=== PATIENT | female | born 1955 | race Caucasian/White ===

== ENCOUNTER 2016-11-01 14:10 | Emergency (ER) | payer MEDICARE ==
--- NOTE | 2016-11-01 14:40 | EDM.PDOC ---
ED HISTORY OF PRESENT ILLNESS - General Chief Complaint: Respiratory Problem Stated Complaint: SOB, WEAKNESS Time Seen by Provider: 11/01/16 14:39 Source: Reports: Patient History Limitations: Reports: No limitations - History of Present Illness INITIAL COMMENTS - FREE TEXT/NARRATIVE: Pt has had increased sob for the past 10 days. She is just finishing a course of predisone. Timing/Duration: Reports: Day(s):, Getting worse Severity: moderate Associated Symptoms: Reports: cough, shortness of breath - Related Data Allergies/ADRs: Allergies Allergy/AdvReac Type Severity Reaction Status Date / Time amoxicillin [From Augmentin] Allergy Difficulty Verified 11/01/16 14:16 Breathing clavulanic acid Allergy Difficulty Verified 11/01/16 14:16 [From Augmentin] Breathing ofloxacin [From Floxin] AdvReac Nausea Verified 11/01/16 14:16 Home Meds: Home Meds Albuterol Sulfate [Proair Respiclick] 2 puff IN Q4HR PRN 04/29/15 [History] Aspirin [Adult Low Dose Aspirin EC] 81 mg PO DAILY 04/29/15 [History] Atenolol 50 mg PO DAILY 04/29/15 [History] Citalopram Hydrobromide [Celexa] 40 mg PO DAILY 04/29/15 [History] Fenofibrate,Micronized [Lofibra] 134 mg PO DAILY 04/29/15 [History] Gabapentin [Neurontin] 400 mg PO QID 04/29/15 [History] Insulin Aspart [NovoLOG] 42 units SUBCUT ASDIRECTED 04/29/15 [History] Lisinopril [Zestril] 5 mg PO DAILY 04/29/15 [History] OLANZapine [ZyPREXA] 30 mg PO BEDTIME 04/29/15 [History] metFORMIN HCl [Metformin HCl] 1,000 mg PO BID 04/29/15 [History] Nitroglycerin [Nitrostat] 1 tab SL ASDIRECTED 05/08/15 [History] Fluticasone/Salmeterol [Advair Hfa 230-21 Mcg Inhaler] 2 inh INH BID 11/01/16 [ History] OLANZapine [Olanzapine] 5 mg PO DAILY 11/01/16 [History] glipiZIDE [Glucotrol XL] 5 mg PO BRK 11/01/16 [History] Past Medical History Other Dermatologic History: skin ca Social & Family History - Tobacco Use Smoking Status *Q: Former Smoker Years of Tobacco use: 30 Packs/Tins Daily: 1.5 Used Tobacco, but Quit: Yes Month Tobacco Last Used: jul - Recreational Drug Use Recreational Drug Use: No ED ROS GENERAL - Review of Systems Review Of Systems: See Below Constitutional: Reports: no symptoms HEENT: Reports: No symptoms Respiratory: Reports: Shortness of Breath, Wheezing Cardiovascular: Reports: No symptoms Endocrine: Reports: no symptoms GI/Abdominal: Reports: No symptoms : Reports: no symptoms Musculoskeletal: Reports: no symptoms ED EXAM, GENERAL - Physical Exam Exam: See Below Free Text/Narrative:: Pt arrived with sob. She was breathing quite rapidly on arrival. She did not have a fever. She is just finishing a course of predisone. Exam Limited By: No limitations General Appearance: alert, anxious, moderate distress Ears: normal TMs Nose: normal inspection Throat/Mouth: Normal inspection Head: atraumatic Neck: carotid bruit Respiratory/Chest: decreased breath sounds, wheezing Cardiovascular: regular rate, rhythm GI/Abdominal: soft, non tender (Female) Exam: Deferred Rectal (Female) Exam: Deferred Back Exam: normal inspection Extremities: normal inspection Neurological: alert, oriented, normal cognition Psychiatric: normal affect, anxious Course - Vital Signs Last Recorded V/S: Last Vital Signs Temp 36.6 C 11/01/16 14:24 Pulse 72 11/01/16 16:41 Resp 22 H 11/01/16 16:41 BP 162/78 H 11/01/16 16:41 Pulse Ox 94 L 11/01/16 16:41 - Orders/Labs/Meds Orders: Active Orders 24 hr Category Date Time Status EKG Documentation Completion [RC] ASDIRECTED Care 11/01/16 14:38 Active RT Aerosol Therapy [RC] ASDIRECTED Care 11/01/16 15:40 Active Chest 2V [CR] Stat Exams 11/01/16 14:37 Taken EKG 12 Lead [EK] Routine Ther 11/01/16 14:38 Ordered Labs: Laboratory Tests 11/01/16 11/01/16 11/01/16 Range/Units 14:37 14:37 14:38 WBC 7.7 (4.5-11.0) K/uL RBC 4.45 (3.30-5.50) M/uL Hgb 11.7 L (12.0-15.0) g/dL Hct 36.3 (36.0-48.0) % MCV 82 (80-98) fL MCH 26 L (27-31) pg MCHC 32 (32-36) % Plt Count 190 (150-400) K/uL Neut % (Auto) 79 H (36-66) % Lymph % (Auto) 14 L (24-44) % Becker % (Auto) 7 H (2-6) % Eos % (Auto) 0 L (2-4) % Baso % (Auto) 0 (0-1) % D-Dimer, Quantitative (0.0-400.0) ng/mL Sodium 140 (140-148) mmol/L Potassium 4.7 (3.6-5.2) mmol/L Chloride 103 (100-108) mmol/L Carbon Dioxide 26 (21-32) mmol/L Anion Gap 10.6 (5.0-14.0) mmol/L BUN 27 H (7-18) mg/dL Creatinine 1.2 H (0.6-1.0) mg/dL Est Cr Clr Drug Dosing 47.25 mL/min Estimated GFR (MDRD) 46 L (>60) Glucose 251 H (74-106) mg/dL Calcium 8.4 L (8.5-10.1) mg/dL Total Bilirubin 0.2 (0.2-1.0) mg/dL AST 12 L (15-37) U/L ALT 30 (12-78) U/L Alkaline Phosphatase 46 (46-116) U/L Troponin I (0.000-0.056) ng/mL C-Reactive Protein 0.34 H (0.0-0.3) mg/dL Ulr-[id number]-Bngarxyrzsf Pept 232 H (5-125) pg/mL Total Protein 6.7 (6.4-8.2) g/dL Albumin 3.3 L (3.4-5.0) g/dL Globulin 3.4 (2.3-3.5) g/dL Albumin/Globulin Ratio 1.0 L (1.2-2.2) Urine Color Urine Appearance Urine pH (4.5-8.0) Ur Specific Hooper (1.008-1.030) Urine Protein (NEGATIVE) mg/dL Urine Glucose (UA) (NEGATIVE) mg/dL Urine Ketones (NEGATIVE) mg/dL Urine Occult Blood (NEGATIVE) Urine Nitrite (NEGATIVE) Urine Bilirubin (NEGATIVE) Urine Urobilinogen (NORMAL) mg/dL Ur Leukocyte Esterase (NEGATIVE) Urine RBC (0-5) Urine WBC (0-5) Ur Epithelial Cells Amorphous Sediment Urine Bacteria Urine Mucus 11/01/16 11/01/16 11/01/16 Range/Units 14:40 14:41 15:16 WBC (4.5-11.0) K/uL RBC (3.30-5.50) M/uL Hgb (12.0-15.0) g/dL Hct (36.0-48.0) % MCV (80-98) fL MCH (27-31) pg MCHC (32-36) % Plt Count (150-400) K/uL Neut % (Auto) (36-66) % Lymph % (Auto) (24-44) % Becker % (Auto) (2-6) % Eos % (Auto) (2-4) % Baso % (Auto) (0-1) % D-Dimer, Quantitative 113 (0.0-400.0) ng/mL Sodium (140-148) mmol/L Potassium (3.6-5.2) mmol/L Chloride (100-108) mmol/L Carbon Dioxide (21-32) mmol/L Anion Gap (5.0-14.0) mmol/L BUN (7-18) mg/dL Creatinine (0.6-1.0) mg/dL Est Cr Clr Drug Dosing mL/min Estimated GFR (MDRD) (>60) Glucose (74-106) mg/dL Calcium (8.5-10.1) mg/dL Total Bilirubin (0.2-1.0) mg/dL AST (15-37) U/L ALT (12-78) U/L Alkaline Phosphatase (46-116) U/L Troponin I < 0.017 (0.000-0.056) ng/mL C-Reactive Protein (0.0-0.3) mg/dL Oit-G-Unbyfbfbcms Pept (5-125) pg/mL Total Protein (6.4-8.2) g/dL Albumin (3.4-5.0) g/dL Globulin (2.3-3.5) g/dL Albumin/Globulin Ratio (1.2-2.2) Urine Color Yellow Urine Appearance Clear Urine pH 6.0 (4.5-8.0) Ur Specific Hooper 1.010 (1.008-1.030) Urine Protein Negative (NEGATIVE) mg/dL Urine Glucose (UA) 100 H (NEGATIVE) mg/dL Urine Ketones Negative (NEGATIVE) mg/dL Urine Occult Blood Negative (NEGATIVE) Urine Nitrite Negative (NEGATIVE) Urine Bilirubin Negative (NEGATIVE) Urine Urobilinogen 1 (NORMAL) mg/dL Ur Leukocyte Esterase Small (NEGATIVE) Urine RBC 0-5 (0-5) Urine WBC 0-5 (0-5) Ur Epithelial Cells Few Amorphous Sediment Few Urine Bacteria Not seen Urine Mucus Few Meds: Medications Discontinued Medications Generic Name Dose Route Start Last Admin Trade Name Freq PRN Reason Stop Dose Admin Albuterol 2.5 mg 11/01/16 15:39 11/01/16 16:02 Proventil Neb Soln NEB 11/01/16 15:40 2.5 mg ONETIME ONE Administration - Re-Assessments/Exams Free Text/Narrative Re-Assessment/Exam: 11/01/16 17:10 chest no infiltrates present, copd, bnp is not elevated, d dimer is not elevated. her wbc is normal, trop is good. Her ekg does not show ny acute changes. She was ambulated in the [place] and did not desat significantly Departure - Departure Time of Disposition: 17:12 Disposition: Home, Self-Care 01 Condition: fair Clinical Impression: COPD (chronic obstructive pulmonary disease), Atypical chest pain Instructions: Chronic Obstructive Pulmonary Disease, [id number], Nonspecific Chest Pain Referrals: Adi Lynch MD [Primary Care Provider] - Forms: ED Department Discharge Care Plan Goals: , albuterol neb q6h, finish predisone, cont other med. appt with regular physian mid week. - My Orders Last 24 Hours: My Active Orders 11/01/16 14:37 Chest 2V [CR] Stat 11/01/16 14:38 EKG Documentation Completion [RC] ASDIRECTED EKG 12 Lead [EK] Routine 11/01/16 15:40 RT Aerosol Therapy [RC] ASDIRECTED - Assessment/Plan Last 24 Hours: My Active Orders 11/01/16 14:37 Chest 2V [CR] Stat 11/01/16 14:38 EKG Documentation Completion [RC] ASDIRECTED EKG 12 Lead [EK] Routine 11/01/16 15:40 RT Aerosol Therapy [RC] ASDIRECTED
[2016-11-01] MEDS ORDERED: Albuterol 0.083% 2.5 MG/3 ML Neb Soln NEB ONE (15:39)
[2016-11-01 16:45] VITALS: BP 162/78
--- NOTE | 2016-11-02 09:14 | CR ---
Chest 2V INDICATION: sob FINDINGS: Comparison 05/08/2015. Heart size borderline enlarged. Hypertrophic changes thoracic spine . Chest otherwise negative.
== END 2016-11-01 17:37 | disposition home or self-care (01) ==
LOC: JP.ED 14:10
DX: J44.9 Chronic obstructive pulmonary disease, unspecified (principal); R07.89 Other chest pain; Z79.4 Long term (current) use of insulin; Z79.899 Other long term (current) drug therapy; Z79.82 Long term (current) use of aspirin; Z87.891 Personal history of nicotine dependence; Z88.1 Allergy status to other antibiotic agents; Z88.8 Allergy status to other drugs, medicaments and biological substances; Z85.828 Personal history of other malignant neoplasm of skin
CPT/HCPCS: 36415; 71020; 71020-26; 80053; 81001; 83880; 84484; 85025; 85379; 86140; 93005; 93010; 99283; 99285-25

== ENCOUNTER 2017-07-07 10:25 | Emergency (ER) | payer MEDICARE ==
--- NOTE | 2017-07-07 10:50 | EDM.PDOC ---
ED HPI GENERAL MEDICAL PROBLEM - General Chief Complaint: Respiratory Problem Stated Complaint: MEDICAL Time Seen by Provider: 07/07/17 10:39 Source of Information: Reports: Patient, Family, RN Notes Reviewed History Limitations: Reports: No Limitations - History of Present Illness INITIAL COMMENTS - FREE TEXT/NARRATIVE: 62-year-old female presents to emergency department today complaint of shortness of breath, she has a known history of chronic obstructive pulmonary disease she states her breathing has become worse over the last week and a half or so she is producing sputum is white with red tinge denies any fevers, chest pain secondary to coughing - Related Data Allergies Allergy/AdvReac Type Severity Reaction Status Date / Time amoxicillin [From Augmentin] Allergy Difficulty Verified 07/07/17 10:32 Breathing clavulanic acid Allergy Difficulty Verified 07/07/17 10:32 [From Augmentin] Breathing ofloxacin [From Floxin] AdvReac Nausea Verified 07/07/17 10:32 Home Meds: Home Meds Albuterol Sulfate [Proair Respiclick] 2 puff IN Q4HR PRN 04/29/15 [History] Aspirin [Adult Low Dose Aspirin EC] 81 mg PO DAILY 04/29/15 [History] Atenolol 50 mg PO DAILY 04/29/15 [History] Citalopram Hydrobromide [Celexa] 40 mg PO DAILY 04/29/15 [History] Fenofibrate,Micronized [Lofibra] 134 mg PO DAILY 04/29/15 [History] Gabapentin [Neurontin] 400 mg PO QID 04/29/15 [History] Insulin Aspart [NovoLOG] 42 units SUBCUT ASDIRECTED 04/29/15 [History] Lisinopril [Zestril] 5 mg PO DAILY 04/29/15 [History] OLANZapine [ZyPREXA] 30 mg PO BEDTIME 04/29/15 [History] metFORMIN HCl [Metformin HCl] 1,000 mg PO BID 04/29/15 [History] Nitroglycerin [Nitrostat] 1 tab SL ASDIRECTED 05/08/15 [History] Fluticasone/Salmeterol [Advair Hfa 230-21 Mcg Inhaler] 2 inh INH BID 11/01/16 [ History] OLANZapine [Olanzapine] 5 mg PO DAILY 11/01/16 [History] glipiZIDE [Glucotrol XL] 5 mg PO BRK 11/01/16 [History] Past Medical History Cardiovascular History: Reports: High Cholesterol Respiratory History: Reports: COPD Musculoskeletal History: Reports: Fracture Psychiatric History: Reports: Anxiety, Bipolar, Depression, Panic Attack, Psych Hospitalization(s) Other Psychiatric History: schizoeffective disorder. Endocrine/Metabolic History: Reports: Diabetes, Type II, Obesity/BMI 30+ Oncologic (Cancer) History: Reports: Other (See Below) Other Oncologic History: skin cancer Other Dermatologic History: skin ca - Past Surgical History Female Surgical History: Reports: Tubal Ligation Other Oncologic Surgeries/Procedures: HX OF SKIN CA Social & Family History - Tobacco Use Smoking Status *Q: Unknown Ever Smoked Years of Tobacco use: 30 Packs/Tins Daily: 1.5 Used Tobacco, but Quit: Yes Month Tobacco Last Used: jul - Recreational Drug Use Recreational Drug Use: No ED ROS GENERAL - Review of Systems Review Of Systems: See Below Constitutional: Denies: Fever, Chills HEENT: Reports: No Symptoms Respiratory: Reports: Shortness of Breath, Cough, Sputum Cardiovascular: Reports: No Symptoms Endocrine: Reports: No Symptoms GI/Abdominal: Reports: No Symptoms : Reports: No Symptoms Musculoskeletal: Reports: No Symptoms Skin: Reports: No Symptoms ED EXAM, GENERAL - Physical Exam Exam: See Below Free Text/Narrative:: General: Female, not in any distress, alert and oriented x3 HEENT: head is atraumatic normocephalic, eyes pupils equal round reactive to light, sclera clear no conjunctivitis appreciated. Ears tympanic membranes clear and lopez landmarks and light reflex are present bilaterally canals are clear. Nose no septal deviation, nares are clear, no blood present. Mouth mucosa is moist and pink no erythema or exudate noted in soft palate, tongue is midline uvula is midline, dentition is intact. Neck: Supple no thyromegaly no tracheal deviation. Nodes: Cervical nodes subclavicular nodes nontender no palpable lymphadenopathy noted. Lungs: Breath sounds are distant I don't appreciate any adventitious noises CV: Regular rate and rhythm S1 and S2 appreciated no murmurs rubs or gallops noted. Abdomen: Soft, nontender, no palpable masses or organomegaly appreciated, no distention no guarding bowel sounds are present, . Neuro: Cranial nerves II through XII grossly intact Skin: Warm and dry, intact Extremities: No lower extremity edema appreciated, Course - Vital Signs Last Recorded V/S: Last Vital Signs Temp 97.0 F 07/07/17 10:28 Pulse 78 07/07/17 10:28 Resp 16 07/07/17 10:28 BP 154/72 H 07/07/17 10:28 Pulse Ox 98 07/07/17 10:28 - Orders/Labs/Meds Orders: Active Orders 24 hr Category Date Time Status EKG Documentation Completion [RC] ASDIRECTED Care 07/07/17 10:47 Active EKG 12 Lead [EK] Stat Ther 07/07/17 10:47 Ordered Labs: Laboratory Tests 07/07/17 07/07/17 07/07/17 Range/Units 10:35 10:35 10:35 WBC 4.4 L (4.5-11.0) K/uL RBC 4.16 (3.30-5.50) M/uL Hgb 10.9 L (12.0-15.0) g/dL Hct 34.4 L (36.0-48.0) % MCV 83 (80-98) fL MCH 26 L (27-31) pg MCHC 32 (32-36) % Plt Count 177 (150-400) K/uL Neut % (Auto) 73 H (36-66) % Lymph % (Auto) 20 L (24-44) % Kinney % (Auto) 8 H (2-6) % Eos % (Auto) 0 L (2-4) % Baso % (Auto) 0 (0-1) % Sodium 137 L (140-148) mmol/L Potassium 4.5 (3.6-5.2) mmol/L Chloride 101 (100-108) mmol/L Carbon Dioxide 29 (21-32) mmol/L Anion Gap 11.5 (5.0-14.0) mmol/L BUN 28 H (7-18) mg/dL Creatinine 1.3 H (0.6-1.0) mg/dL Est Cr Clr Drug Dosing TNP Estimated GFR (MDRD) 42 L (>60) Glucose 401 H* (74-106) mg/dL Lactic Acid 2.7 H (0.4-2.0) mmol/L Calcium 9.3 (8.5-10.1) mg/dL Total Bilirubin 0.3 (0.2-1.0) mg/dL AST 13 L (15-37) U/L ALT 26 (12-78) U/L Alkaline Phosphatase 51 (46-116) U/L Troponin I < 0.017 (0.000-0.056) ng/mL NT-Pro-B Natriuret Pep (5-125) pg/mL Total Protein 6.6 (6.4-8.2) g/dL Albumin 3.1 L (3.4-5.0) g/dL Globulin 3.5 (2.3-3.5) g/dL Albumin/Globulin Ratio 0.9 L (1.2-2.2) 07/07/17 Range/Units 10:35 WBC (4.5-11.0) K/uL RBC (3.30-5.50) M/uL Hgb (12.0-15.0) g/dL Hct (36.0-48.0) % MCV (80-98) fL MCH (27-31) pg MCHC (32-36) % Plt Count (150-400) K/uL Neut % (Auto) (36-66) % Lymph % (Auto) (24-44) % Kinney % (Auto) (2-6) % Eos % (Auto) (2-4) % Baso % (Auto) (0-1) % Sodium (140-148) mmol/L Potassium (3.6-5.2) mmol/L Chloride (100-108) mmol/L Carbon Dioxide (21-32) mmol/L Anion Gap (5.0-14.0) mmol/L BUN (7-18) mg/dL Creatinine (0.6-1.0) mg/dL Est Cr Clr Drug Dosing Estimated GFR (MDRD) (>60) Glucose (74-106) mg/dL Lactic Acid (0.4-2.0) mmol/L Calcium (8.5-10.1) mg/dL Total Bilirubin (0.2-1.0) mg/dL AST (15-37) U/L ALT (12-78) U/L Alkaline Phosphatase (46-116) U/L Troponin I (0.000-0.056) ng/mL NT-Pro-B Natriuret Pep 80 (5-125) pg/mL Total Protein (6.4-8.2) g/dL Albumin (3.4-5.0) g/dL Globulin (2.3-3.5) g/dL Albumin/Globulin Ratio (1.2-2.2) Meds: Medications Discontinued Medications Generic Name Dose Route Start Last Admin Trade Name Dona PRN Reason Stop Dose Admin Insulin Human Regular 10 unit 07/07/17 12:34 Novolin R SUBCUT 07/07/17 12:35 ONETIME ONE Protocol Departure - Departure Time of Disposition: 12:48 Disposition: Home, Self-Care 01 Condition: Fair Clinical Impression: COPD exacerbation - Discharge Information Referrals: Adi Lynch MD [Primary Care Provider] - Forms: ED Department Discharge Additional Instructions: Take full course of antibiotics, Please followup with your primary care provider in 5-7 days if not better, please call return to the emergency department with worsening of symptoms. - My Orders Last 24 Hours: My Active Orders 07/07/17 10:47 EKG Documentation Completion [RC] ASDIRECTED EKG 12 Lead [EK] Stat - Assessment/Plan Last 24 Hours: My Active Orders 07/07/17 10:47 EKG Documentation Completion [RC] ASDIRECTED EKG 12 Lead [EK] Stat Plan: Assessment Acuity = acute Site and laterality = exacerbation COPD, came the patient with known history history of chronic obstructive pulmonary disease and diabetes mellitus type 2 Etiology = unclear etiology Manifestations = dyspnea beyond baseline Location of injury = Home Lab values = hemoglobin low at 10.4 consistent normochromic anemia creatinine elevated at 1.3 consistent with chronic renal failure stage G IIIB lactic acid elevated at 2.7 consistent lactic acidosis troponin negative, glucose elevated at 41 consistent with hyperglycemia chest x-ray shows no acute process EKG EKG demonstrates normal sinus rhythm there is no atrial enlargement there is no ventricular enlargement there is no axis deviation no T wave inversions I don't appreciate any ST depressions or elevations no Q waves noted good R wave progression Plan I did review lab work chest x-ray and EKG results with her I offered to work on her blood sugar to get that down and recheck however she declined she would prefer to start her home medications of insulin which she has not done today discussed the use of antibiotics and steroids for her acute exacerbation of her breathing she declined steroids at this time prescription written for doxycycline 100 mg by mouth twice a day 7 days she is to follow-up with her primary care in 5-7 days for reevaluation Patient was in agreement with the plan all questions were answered, they were instructed to return to the emergency department or call for worsening symptoms. This note was dictated using [employer] voice recognition software please call with any questions.
--- NOTE | 2017-07-07 12:13 | CR ---
Chest 2V INDICATION: sob COMPARISON: 11/01/2016 FINDINGS: Two views. Mild cardiomegaly unchanged. No infiltrates, pleural effusions, or signs of p ulmonary edema. IMPRESSION: Nothing acute.
[2017-07-07] MEDS ORDERED: Insulin Regular, Human 100 Units/ML 10 ML Vial SUBCUT ONE (12:34)
[2017-07-07 13:10] VITALS: BP 137/60
== END 2017-07-07 13:11 | disposition home or self-care (01) ==
LOC: JP.ED 10:25
DX: J44.1 Chronic obstructive pulmonary disease with (acute) exacerbation (principal); E78.00 Pure hypercholesterolemia, unspecified; F41.0 Panic disorder [episodic paroxysmal anxiety]; F31.9 Bipolar disorder, unspecified; E11.9 Type 2 diabetes mellitus without complications; Z87.891 Personal history of nicotine dependence; Z79.4 Long term (current) use of insulin; Z79.899 Other long term (current) drug therapy; Z79.82 Long term (current) use of aspirin; Z88.1 Allergy status to other antibiotic agents
CPT/HCPCS: 36415; 71020; 71020-26; 80053; 83605; 83880; 84484; 85025; 93005; 93010; 99284; 99285-25; A9270-GY

== ENCOUNTER 2017-08-25 10:10 | Emergency (ER) | payer MEDICAID, MEDICARE ==
[2017-08-25 10:24] VITALS: BP 150/65
--- NOTE | 2017-08-25 11:34 | CR ---
Knee 3V Lt HISTORY: Trauma COMPARISON: None FINDINGS: Mild degenerative change in the medial and lateral compartment with marginal osteophyte for mation. There is moderate degenerative change in the patellar femoral joint with moderate marginal os teophytes greatest superiorly and laterally. No significant effusion or fracture. No bony destructive process seen.
--- NOTE | 2017-08-25 12:12 | EDM.PDOC ---
ED HPI GENERAL MEDICAL PROBLEM - General Chief Complaint: Lower Extremity Injury/Pain Stated Complaint: FALL VIA TRI Time Seen by Provider: 08/25/17 11:02 Source of Information: Reports: Patient History Limitations: Reports: No Limitations - History of Present Illness INITIAL COMMENTS - FREE TEXT/NARRATIVE: This patient comes in after falling at home. She isn't sure if she tripped over something such as her walker or if she just lost her balance but it happened just as she was getting out of bed. She fell to her knees she has an abrasion of the right knee but says it really hurts her left knee. She has a lot of degenerative arthritis in the knees and is scheduled to get a left knee replacement sometime in the fairly near future. Left Knee Pain Score (Numeric/FACES): 10 - Related Data Allergies Allergy/AdvReac Type Severity Reaction Status Date / Time amoxicillin [From Augmentin] Allergy Difficulty Verified 08/25/17 10:37 Breathing clavulanic acid Allergy Difficulty Verified 08/25/17 10:37 [From Augmentin] Breathing ofloxacin [From Floxin] AdvReac Nausea Verified 08/25/17 10:37 Home Meds: Home Meds Albuterol Sulfate [Proair Respiclick] 2 puff IN Q4HR PRN 04/29/15 [History] Aspirin [Adult Low Dose Aspirin EC] 81 mg PO DAILY 04/29/15 [History] Atenolol 50 mg PO DAILY 04/29/15 [History] Citalopram Hydrobromide [Celexa] 40 mg PO DAILY 04/29/15 [History] Fenofibrate,Micronized [Lofibra] 134 mg PO DAILY 04/29/15 [History] Gabapentin [Neurontin] 400 mg PO QID 04/29/15 [History] Insulin Aspart [NovoLOG] 37 units SUBCUT TID 04/29/15 [History] Lisinopril [Zestril] 5 mg PO DAILY 04/29/15 [History] OLANZapine [ZyPREXA] 30 mg PO BEDTIME 04/29/15 [History] metFORMIN HCl [Metformin HCl] 1,000 mg PO BID 04/29/15 [History] Nitroglycerin [Nitrostat] 1 tab SL ASDIRECTED 05/08/15 [History] Fluticasone/Salmeterol [Advair Hfa 230-21 Mcg Inhaler] 2 inh INH BID 11/01/16 [ History] OLANZapine [Olanzapine] 5 mg PO DAILY 11/01/16 [History] glipiZIDE [Glucotrol XL] 5 mg PO BRK 11/01/16 [History] Insulin NPH Human Isophane [Novolin N] 1 SQ BEDTIME 08/25/17 [History] traMADol HCl [Tramadol HCl] 50 mg PO Q6HR 08/25/17 [History] Past Medical History Cardiovascular History: Reports: High Cholesterol, Hypertension Respiratory History: Reports: Asthma, 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 Endocrine/Metabolic History: Reports: Diabetes, Type II, Obesity/BMI 30+ Oncologic (Cancer) History: Reports: Other (See Below) Other Oncologic History: skin cancer Other Dermatologic History: skin ca - Infectious Disease History Infectious Disease History: Reports: Chicken Pox, Influenza, Measles, Mumps - Past Surgical History Female Surgical History: Reports: Tubal Ligation Other Oncologic Surgeries/Procedures: HX OF SKIN CA Social & Family History - Tobacco Use Smoking Status *Q: Former Smoker Years of Tobacco use: 30 Packs/Tins Daily: 1.5 Used Tobacco, but Quit: Yes Month Tobacco Last Used: cant remember - Caffeine Use Caffeine Use: Reports: Soda - Recreational Drug Use Recreational Drug Use: No Review of Systems - Review of Systems Review Of Systems: ROS reveals no pertinent complaints other than HPI. ED EXAM, GENERAL - Physical Exam Exam: See Below Exam Limited By: No Limitations General Appearance: Alert, No Apparent Distress, Obese Eye Exam: Bilateral Eye: Normal Inspection Head: Atraumatic Neck: Full Range of Motion Respiratory/Chest: No Respiratory Distress, Lungs Clear Cardiovascular: Regular Rate, Rhythm GI/Abdominal: Non-Tender Extremities: Other (Minor abrasion over the right patella. No swelling of the right knee. Good range of motion of the right. Left knee shows no abrasions with this is just a little red susu over the patella. There is no effusion. She has decreased active range of motion due to pain. No instability was noted.) Skin Exam: Warm, Dry Course - Vital Signs Last Recorded V/S: Last Vital Signs Temp 37.6 C 08/25/17 10:30 Pulse 128 H 08/25/17 10:30 Resp 15 08/25/17 10:30 BP 150/65 H 08/25/17 10:30 Pulse Ox 83 L 08/25/17 10:30 - Radiology Interpretation Free Text/Narrative:: Plain films left knee shows water degenerative changes but nothing acute Departure - Departure Time of Disposition: 12:11 Disposition: Home, Self-Care 01 Condition: Fair Clinical Impression: Contusion of left knee, Abrasion of right knee - Discharge Information Referrals: Adi Lynch MD [Primary Care Provider] - Additional Instructions: Apply alternating ice and heat to the knees. Usually her own pain medications as needed. Try to stay as active as you can. Follow-up with your Dr. if no better in a few days
== END 2017-08-25 12:31 | disposition home or self-care (01) ==
LOC: JP.ED 10:10
DX: S80.02XA Contusion of left knee, initial encounter (principal); S80.211A Abrasion, right knee, initial encounter; E78.00 Pure hypercholesterolemia, unspecified; I10 Essential (primary) hypertension; E11.9 Type 2 diabetes mellitus without complications; Z88.1 Allergy status to other antibiotic agents; Z88.8 Allergy status to other drugs, medicaments and biological substances; Z79.82 Long term (current) use of aspirin; Z79.899 Other long term (current) drug therapy; Z79.4 Long term (current) use of insulin; Z87.891 Personal history of nicotine dependence; W19.XXXA Unspecified fall, initial encounter
CPT/HCPCS: 73562-26-LT; 73562-LT; 99284

== ENCOUNTER 2017-08-26 10:26 | Inpatient (IN) | payer MEDICARE ==
[2017-08-26] MEDS ORDERED: Sodium Chloride 0.9% 1,000 ML IV ONE ×2 (11:02→12:36)
[2017-08-26] MEDS ORDERED: Sodium Chloride 0.9% 10 ML Syringe FLUSH PRN (11:03)
--- NOTE | 2017-08-26 12:00 | CT ---
Head wo Cont INDICATION: Fall. Dose: Total DLP 942. FINDINGS: No acute intracranial hemorrhage, mass, or edema. Visualized portions of the paranasal sinu ses and mastoid air cells are clear. Soft tissues are negative. IMPRESSION: Negative head CT.
[2017-08-26] MEDS ORDERED: OLANZapine 5 MG Tab PO ONE (13:12)
--- NOTE | 2017-08-26 13:45 | CR ---
Chest 1V Frontal HISTORY: Falling, weakness. COMPARISON: 07/07/2017. FINDINGS: Mild cardiomegaly. This is magnified from portable technique and somewhat lordotic projecti on. No acute congestive change no dense infiltrates or effusions.
--- NOTE | 2017-08-26 16:10 | PCM.HP ---
H&P History of Present Illness - General Date of Service: 08/26/17 Admit Problem/Dx: Admission Diagnosis/Problem Admission Diagnosis/Problem Syncope Source of Information: Patient, Provider History Limitations: Reports: No Limitations - History of Present Illness Initial Comments - Free Text/Narative: Amrita presents to the emergency room again today with recurrent falls, generalized weakness and several episodes of falling asleep. She reports that she has not felt well for the past several days. No real specific complaints just feels tired and is falling asleep. She does not have symptoms that preceded her fall she just loses strength and slowly slumped to the ground. She does not report dizziness or lightheadedness. She has not had any palpitations, chest pain or chest tightness. She has had minor injuries such as abrasions to her knees with the falls. She was so weak yesterday she couldn't get up out of the chair. She doesn't think that she's had any fevers area appetite has been normal. She has had some low blood sugars around lunchtime but otherwise her sugars have been up and down like usual. No complaints of abdominal pain, nausea or diarrhea. No change in bladder habits. She does note that she was recently started on diclofenac and tramadol for her left knee arthritis. She is wondering if the tramadol is making her sleepy. She has not been drinking very well the past few days. Workup in the emergency room revealed sinus tachycardia, evidence for dehydration on examination and her laboratory studies reveal a troponin of 0.13 a potassium of 6 and a creatinine now up to 1.5. Given her recurrent episodes of syncope, elevated troponin and worsening renal function she will be admitted for additional management. Left Knee Pain Score (Numeric/FACES): 4 - Related Data Allergies/Adverse Reactions: Allergies Allergy/AdvReac Type Severity Reaction Status Date / Time amoxicillin [From Augmentin] Allergy Difficulty Verified 08/26/17 10:41 Breathing clavulanic acid Allergy Difficulty Verified 08/26/17 10:41 [From Augmentin] Breathing ofloxacin [From Floxin] AdvReac Nausea Verified 08/26/17 10:41 Home Medications: Home Meds Albuterol Sulfate [Proair Respiclick] 2 puff IN Q4HR PRN 04/29/15 [History] Aspirin [Adult Low Dose Aspirin EC] 81 mg PO DAILY 04/29/15 [History] Atenolol 50 mg PO DAILY 04/29/15 [History] Citalopram Hydrobromide [Celexa] 40 mg PO DAILY 04/29/15 [History] Fenofibrate,Micronized [Lofibra] 134 mg PO DAILY 04/29/15 [History] Gabapentin [Neurontin] 400 mg PO QID 04/29/15 [History] Insulin Aspart [NovoLOG] 37 units SUBCUT TID 04/29/15 [History] Lisinopril [Zestril] 5 mg PO DAILY 04/29/15 [History] OLANZapine [ZyPREXA] 30 mg PO BEDTIME 04/29/15 [History] metFORMIN HCl [Metformin HCl] 1,000 mg PO BID 04/29/15 [History] Nitroglycerin [Nitrostat] 1 tab SL ASDIRECTED 05/08/15 [History] Fluticasone/Salmeterol [Advair Hfa 230-21 Mcg Inhaler] 2 inh INH BID 11/01/16 [ History] OLANZapine [Olanzapine] 5 mg PO DAILY 11/01/16 [History] glipiZIDE [Glucotrol XL] 5 mg PO BRK 11/01/16 [History] Insulin NPH Human Isophane [Novolin N] 30 unit SQ BEDTIME 08/25/17 [History] Benztropine Mesylate 1 tab PO BEDTIME 08/26/17 [History] Diclofenac Potassium [Cataflam] 1 tab PO ASDIRECTED 08/26/17 [History] clonazePAM [Klonopin] 1 mg PO DAILY 08/26/17 [History] clonazePAM [Klonopin] 2 mg PO BEDTIME 08/26/17 [History] Past Medical History Cardiovascular History: Reports: High Cholesterol, Hypertension Respiratory History: Reports: Asthma, COPD [employer]OR [employer]IMENT[employer]ICINE History: Reports: Musculoskeletal History: Reports: Fracture Psychiatric History: Reports: Anxiety, Bipolar, Depression, Panic Attack, Psych Hospitalization(s) Other Psychiatric History: schizoeffective disorder. Endocrine/Metabolic History: Reports: Diabetes, Type II, Obesity/BMI 30+ Oncologic (Cancer) History: Reports: Other (See Below) Other Oncologic History: skin cancer Other Dermatologic History: skin ca - Infectious Disease History Infectious Disease History: Reports: Chicken Pox, Influenza, Measles, Mumps - Past Surgical History Female Surgical History: Reports: Tubal Ligation Other Oncologic Surgeries/Procedures: HX OF SKIN CA Social & Family History - Family History Cardiac: Reports: CAD (father in his 60's) - Tobacco Use Smoking Status *Q: Never Smoker Years of Tobacco use: 30 Packs/Tins Daily: 1.5 Used Tobacco, but Quit: Yes Month Tobacco Last Used: cant remember - Caffeine Use Caffeine Use: Reports: Soda - Alcohol Use Alcohol Use History: No Alcohol Use in Last Twelve Months: No 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 Pertinent positives and negatives are noted in the history of present illness. All other systems were reviewed and were negative except as noted. Exam - Exam Exam: See Below - Vital Signs Vital Signs: Last Vital Signs Temp 37.3 C 08/26/17 10:38 Pulse 118 H 08/26/17 14:10 Resp 14 08/26/17 14:10 BP 135/57 L 08/26/17 14:10 Pulse Ox 95 08/26/17 14:10 Weight: 136.078 kg - Exam Quality Assessment: Supplemental Oxygen General: Alert, Oriented, Cooperative. No: Mild Distress HEENT: Conjunctiva Clear. No: Mucosa Moist & [place] (dry), Scleral Icterus Neck: Supple, Trachea Midline. No: Lymphadenopathy, Thyromegaly Lungs: Clear to Auscultation, Normal Respiratory Effort Cardiovascular: Regular Rhythm, Tachycardia. No: Systolic Murmur GI/Abdominal Exam: Normal Bowel Sounds, Soft, Non-Tender, No Distention, Other ( obese) Extremities: No Pedal Edema. No: Increased Warmth Peripheral Pulses: 2+: Dorsalis Pedis (L), Dorsalis Pedis (R) Skin: Warm, Dry. No: Rash Neuro Extensive - Mental Status: Alert, Oriented x3, Nl Response to Commands Neuro Extensive - Motor, Sensory, Reflexes: CN II-XII Intact. No: Dysarthria, Abnormal Motor, Tremor Psychiatric: Alert, Normal Affect - Patient Data Lab Results Last 24 hrs: Laboratory Results - last 24 hr 08/26/17 08/26/17 08/26/17 Range/Units 11:36 11:36 12:34 WBC 7.3 (4.5-11.0) K/uL RBC 3.61 (3.30-5.50) M/uL Hgb 9.6 L (12.0-15.0) g/dL Hct 30.3 L (36.0-48.0) % MCV 84 (80-98) fL MCH 27 (27-31) pg MCHC 32 (32-36) % Plt Count 185 (150-400) K/uL Neut % (Auto) 80 H (36-66) % Lymph % (Auto) 10 L (24-44) % Bibb % (Auto) 10 H (2-6) % Eos % (Auto) 0 L (2-4) % Baso % (Auto) 0 (0-1) % Sodium 131 L (140-148) mmol/L Potassium 6.0 H (3.6-5.2) mmol/L Chloride 99 L (100-108) mmol/L Carbon Dioxide 29 (21-32) mmol/L Anion Gap 9.0 (5.0-14.0) mmol/L BUN 36 H (7-18) mg/dL Creatinine 1.5 H (0.6-1.0) mg/dL Est Cr Clr Drug Dosing 37.34 mL/min Estimated GFR (MDRD) 35 L (>60) Glucose 232 H (74-106) mg/dL Calcium 8.8 (8.5-10.1) mg/dL Total Bilirubin 0.4 (0.2-1.0) mg/dL AST 24 D (15-37) U/L ALT 28 (12-78) U/L Alkaline Phosphatase 40 L (46-116) U/L Troponin I 0.136 H* (0.000-0.056) ng/mL Total Protein 5.6 L (6.4-8.2) g/dL Albumin 2.9 L (3.4-5.0) g/dL Globulin 2.7 (2.3-3.5) g/dL Albumin/Globulin Ratio 1.1 L (1.2-2.2) Urine Color Urine Appearance Urine pH (4.5-8.0) Ur Specific [place] (1.008-1.030) Urine Protein (NEGATIVE) mg/dL Urine Glucose (UA) (NEGATIVE) mg/dL Urine Ketones (NEGATIVE) mg/dL Urine Occult Blood (NEGATIVE) Urine Nitrite (NEGATIVE) Urine Bilirubin (NEGATIVE) Urine Urobilinogen (NORMAL) mg/dL Ur Leukocyte Esterase (NEGATIVE) Urine RBC (0-5) Urine WBC (0-5) Ur Epithelial Cells Amorphous Sediment Urine Bacteria Urine Mucus 08/26/17 08/26/17 Range/Units 12:59 14:30 WBC (4.5-11.0) K/uL RBC (3.30-5.50) M/uL Hgb (12.0-15.0) g/dL Hct (36.0-48.0) % MCV (80-98) fL MCH (27-31) pg MCHC (32-36) % Plt Count (150-400) K/uL Neut % (Auto) (36-66) % Lymph % (Auto) (24-44) % [place] % (Auto) (2-6) % Eos % (Auto) (2-4) % Baso % (Auto) (0-1) % Sodium (140-148) mmol/L Potassium (3.6-5.2) mmol/L Chloride (100-108) mmol/L Carbon Dioxide (21-32) mmol/L Anion Gap (5.0-14.0) mmol/L BUN (7-18) mg/dL Creatinine (0.6-1.0) mg/dL Est Cr Clr Drug Dosing mL/min Estimated GFR (MDRD) (>60) Glucose (74-106) mg/dL Calcium (8.5-10.1) mg/dL Total Bilirubin (0.2-1.0) mg/dL AST (15-37) U/L ALT (12-78) U/L Alkaline Phosphatase (46-116) U/L Troponin I 0.127 H* (0.000-0.056) ng/mL Total Protein (6.4-8.2) g/dL Albumin (3.4-5.0) g/dL Globulin (2.3-3.5) g/dL Albumin/Globulin Ratio (1.2-2.2) Urine Color Yellow Urine Appearance Cloudy Urine pH 5.0 (4.5-8.0) Ur Specific [place] 1.020 (1.008-1.030) Urine Protein Negative (NEGATIVE) mg/dL Urine Glucose (UA) Normal (NEGATIVE) mg/dL Urine Ketones Negative (NEGATIVE) mg/dL Urine Occult Blood Negative (NEGATIVE) Urine Nitrite Negative (NEGATIVE) Urine Bilirubin Negative (NEGATIVE) Urine Urobilinogen Normal (NORMAL) mg/dL Ur Leukocyte Esterase Negative (NEGATIVE) Urine RBC 0-5 (0-5) Urine WBC 0-5 (0-5) Ur Epithelial Cells Moderate Amorphous Sediment Not seen Urine Bacteria Few Urine Mucus Rare Result Diagrams: 08/26/17 11:36 08/26/17 11:36 Imaging Impressions Last 24 hrs: Head CT - no acute intracranial findings such as mass, bleed or abscess CXR - images personally reviewed - no mass, infiltrate, effusion, chf or obvious abnormality EKG INTERPRETATION EKG Date: 08/26/17 Rhythm: Other (sinus tachycardia) Rate (Beats/Min): 114 [place]: Normal P-Wave: Present QRS: Normal ST-T: Normal QT: Normal *Q Meaningful Use (ADM) - VTE *Q VTE Criteria *Q: - VTE Risk Assess *Q Each Risk Factor Represents 1 Point: Obesity ( BMI > 25 kg/m2), Abnormal Pulmonary Function (COPD) Total Score 1 Point Risk Factors: 2 Each Risk Factor Represents 2 Points: Age 60 - 74 Years Total Score 2 Point Risk Factors: 2 Each Risk Factor Represents 3 Points: None Total Score 3 Point Risk Factors: 0 Each Risk Factor Represents 5 Points: None Total Score 5 Point Risk Factors: 0 Venous Thromboembolism Risk Factor Score *Q: 4 - Stroke *Q Stroke Criteria *Q: - AMI *Q AMI Criteria *Q: - Problem List (1) Syncope SNOMED Code(s): 999767752 ICD Code: R55 - SYNCOPE AND COLLAPSE Status: Acute Current Visit: Yes Qualifiers: Syncope type: unspecified Qualified Code(s): R55 - Syncope and collapse (2) Hyperkalemia SNOMED Code(s): 03593226 ICD Code: E87.5 - HYPERKALEMIA Status: Acute Current Visit: Yes (3) CKD (chronic kidney disease), stage III SNOMED Code(s): 526104454 ICD Code: N18.3 - CHRONIC KIDNEY DISEASE, STAGE 3 (MODERATE) Status: Chronic Current Visit: Yes (4) Morbid obesity with BMI of 45.0-49.9, adult SNOMED Code(s): 645286683 ICD Code: E66.01 - MORBID (SEVERE) OBESITY DUE TO EXCESS CALORIES; Z68.42 - BODY MASS INDEX (BMI) 45.0-49.9, ADULT Status: Chronic Current Visit: Yes (5) Diabetes mellitus SNOMED Code(s): 50296518 ICD Code: E11.9 - TYPE 2 DIABETES MELLITUS WITHOUT COMPLICATIONS Status: Chronic Current Visit: No Qualifiers: Diabetes mellitus type: type 2 Diabetes mellitus complication status: with unspecified complications Diabetes mellitus manager long term care insulin use: with mcc use Qualified Code(s): E11.8 - Type 2 diabetes mellitus with unspecified complications; Z79.4 - assisted (current) use of insulin; Z79.4 - intermodal customer service ( current) use of insulin; Z79.4 - intermodal customer service (current) use of insulin; Z79.4 - intermodal customer service (current) use of insulin (6) Chronic obstructive pulmonary disease SNOMED Code(s): 65662115 ICD Code: J44.9 - CHRONIC OBSTRUCTIVE PULMONARY DISEASE, UNSPECIFIED Status : Chronic Current Visit: No Qualifiers: Chronic bronchitis type: unspecified (7) Elevated troponin SNOMED Code(s): 120942694, 174990706 ICD Code: R74.8 - ABNORMAL LEVELS OF OTHER SERUM ENZYMES Status: Acute Current Visit: Yes Problem List Initiated/Reviewed/Updated: Yes Orders Last 24hrs: Active Orders 24 hr Category Date Time Status Patient Status Manage Transfer [TRANSFER] Routine ADT 08/26/17 15:55 Ordered EKG Documentation Completion [RC] ASDIRECTED Care 08/26/17 12:34 Active D Dimer [D-DIMER QUANTITATIVE] [COAG] Routine Lab 08/26/17 15:53 Ordered Sodium Chloride 0.9% [Saline Flush] Med 08/26/17 11:03 Active 10 ml FLUSH ASDIRECTED PRN Saline Lock Insert [OM.PC] Urgent Oth 08/26/17 11:02 Ordered Resuscitation Status Routine Resus Stat 08/26/17 15:58 Ordered EKG 12 Lead [EK] Urgent Ther 08/26/17 12:34 Ordered Medication Orders Sodium Chloride (Saline Flush) 10 ml FLUSH ASDIRECTED PRN PRN Reason: Keep Vein Open Last Admin: 08/26/17 11:35 Dose: 10 ml Assessment/Plan Comment:: ASSESSMENT AND PLAN - Syncope and collapse - story sounds consistent with dehydration and possibly contribution from her tramadol. She does have a mildly elevated troponin as discussed below but I don't believe this represents acute coronary syndrome. She does have mild tachycardia which seems to be slowly improving with hydration. Pulmonary embolism is in the consideration. -D-dimer -Serial troponins -Cardiac monitoring -IV fluids for hydration -Discontinue tramadol Hyperkalemia - she is on both an YOANNA inhibitor and a nonsteroidal which could cause the worsening renal function and hyperkalemia. -Discontinue YOANNA inhibitor and diclofenac -Repeat potassium this evening -IV fluids Elevated troponin - probable mild demand ischemia in the setting of tachycardia , dehydration with poor clearance of the enzyme given her decreased renal function. -Serial levels -IV fluids -Patient would likely benefit from outpatient stress testing Insulin-dependent diabetes mellitus - some low sugars at lunchtime but otherwise sugars are up and down, which is normal for her. -Continue usual home dosing -Hold metformin with decreased renal function Chronic psychiatric illnesses - she is on several medications as an outpatient and these will be continued though several of these medications could be contributing to her difficulties. Maintenance issues - - DVT prophylaxis - enoxaparin - GI prophylaxis - not indicated - Nutrition - diabetic diet - Key catheter - not indicated CODE STATUS - full code Admission justification - This patient will be admitted for inpatient services and is medically appropriate meeting medical necessity for inpatient admission as outlined in my documentation. I reasonably expect the patient will require inpatient services that span a period time over 2 midnights. I reasonably expect this patient to be discharged or transferred within 96 hours [facility]. Disposition - anticipate discharge home after the hospital stay Primary care physician - Dr Cris Olivares M.D.
[2017-08-26] MEDS ORDERED: Albuterol 0.083% 2.5 MG/3 ML Neb Soln NEB PRN (16:57)
[2017-08-26] MEDS ORDERED: Polyethylene Glycol 3350 Powder 17 GM Packet PO PRN (16:57)
[2017-08-26] MEDS ORDERED: Ondansetron 4 MG Tab.DIS PO PRN (16:57)
[2017-08-26] MEDS ORDERED: Pneumococcal Polyvalent-23 Vaccine 0.5 ML SDV IM ONE (17:47)
--- NOTE | 2017-08-26 17:51 | EDM.PDOC ---
ED HPI GENERAL MEDICAL PROBLEM - General Chief Complaint: General Stated Complaint: MEDICAL VIA [facility] Time Seen by Provider: 08/26/17 10:40 Source of Information: Reports: Patient, Provider History Limitations: Reports: No Limitations - History of Present Illness INITIAL COMMENTS - FREE TEXT/NARRATIVE: This patient comes in by ambulance complaining of recurrent falls. She was seen yesterday in the emergency department when she fell at home injuring both knees primarily the left. X-rays were done of left knee and only showed degenerative changes. She's supposed to eventually have surgery to the left knee. She was discharged home today she was up walking to her walker and says that again she fell. She hit both knees and bruised her forearms a little bit. She denied ever feeling dizzy she denied tripping. She said she just couldn't get up. Later she said she just couldn't get out of the chair. She was questioned about this was she on the floor her was she in a chair and the patient really couldn't tell me. She took some tramadol since it makes her feel spacey she also took some clonazepam her mom is here and she agrees that this patient's history is confusing and she really doesn't know what she is saying. Mom says that frequently the patient will be holding something and minutes is if she goes to sleep and drops things. Sometimes she falls asleep while she is talking. Today she was yelling for her sister who lives in [place]. This is been going on for a few days. Mom says she takes a lot of medications. She said her oral intake has been decreased over the past 2 days and maybe she might be dehydrated. Left Knee Pain Score (Numeric/FACES): 4 - Related Data Allergies Allergy/AdvReac Type Severity Reaction Status Date / Time amoxicillin [From Augmentin] Allergy Difficulty Verified 08/26/17 10:41 Breathing clavulanic acid Allergy Difficulty Verified 08/26/17 10:41 [From Augmentin] Breathing ofloxacin [From Floxin] AdvReac Nausea Verified 08/26/17 10:41 Home Meds: Home Meds Albuterol Sulfate [Proair Respiclick] 2 puff IN Q4HR PRN 04/29/15 [History] Aspirin [Adult Low Dose Aspirin EC] 81 mg PO DAILY 04/29/15 [History] Atenolol 50 mg PO DAILY 04/29/15 [History] Citalopram Hydrobromide [Celexa] 40 mg PO DAILY 04/29/15 [History] Fenofibrate,Micronized [Lofibra] 134 mg PO DAILY 04/29/15 [History] Gabapentin [Neurontin] 400 mg PO QID 04/29/15 [History] Insulin Aspart [NovoLOG] 37 units SUBCUT TID 04/29/15 [History] Lisinopril [Zestril] 5 mg PO DAILY 04/29/15 [History] OLANZapine [ZyPREXA] 30 mg PO BEDTIME 04/29/15 [History] metFORMIN HCl [Metformin HCl] 1,000 mg PO BID 04/29/15 [History] Nitroglycerin [Nitrostat] 1 tab SL ASDIRECTED 05/08/15 [History] Fluticasone/Salmeterol [Advair Hfa 230-21 Mcg Inhaler] 2 inh INH BID 11/01/16 [ History] OLANZapine [Olanzapine] 5 mg PO DAILY 11/01/16 [History] glipiZIDE [Glucotrol XL] 5 mg PO BRK 11/01/16 [History] Insulin NPH Human Isophane [Novolin N] 30 unit SQ BEDTIME 08/25/17 [History] Benztropine Mesylate 1 tab PO BEDTIME 08/26/17 [History] Diclofenac Potassium [Cataflam] 1 tab PO ASDIRECTED 08/26/17 [History] clonazePAM [Klonopin] 1 mg PO DAILY 08/26/17 [History] clonazePAM [Klonopin] 2 mg PO BEDTIME 08/26/17 [History] Past Medical History Cardiovascular History: Reports: High Cholesterol, Hypertension Respiratory History: Reports: Asthma, COPD [employer] History: Reports: Musculoskeletal History: Reports: Fracture Psychiatric History: Reports: Anxiety, Bipolar, Depression, Panic Attack, Psych Hospitalization(s) Other Psychiatric History: schizoeffective disorder. Endocrine/Metabolic History: Reports: Diabetes, Type II, Obesity/BMI 30+ Oncologic (Cancer) History: Reports: Other (See Below) Other Oncologic History: skin cancer Other Dermatologic History: skin ca - Infectious Disease History Infectious Disease History: Reports: Chicken Pox, Influenza, Measles, Mumps - Past Surgical History Female Surgical History: Reports: Tubal Ligation Other Oncologic Surgeries/Procedures: HX OF SKIN CA Social & Family History - Family History Cardiac: Reports: CAD (father in his 60's) - Tobacco Use Smoking Status *Q: Never Smoker Years of Tobacco use: 30 Packs/Tins Daily: 1.5 Used Tobacco, but Quit: Yes Month Tobacco Last Used: cant remember Second Hand Smoke Exposure: No - Caffeine Use Caffeine Use: Reports: Soda - Recreational Drug Use Recreational Drug Use: No ED ROS GENERAL - Review of Systems Review Of Systems: See Below Constitutional: Reports: Weakness HEENT: Reports: Other Respiratory: Reports: No Symptoms (Dry mouth) Cardiovascular: Reports: No Symptoms Endocrine: Reports: No Symptoms GI/Abdominal: Reports: No Symptoms : Reports: No Symptoms Musculoskeletal: Reports: Other (Bruising and abrasions to the knees also some bruising to her wrists) Skin: Reports: No Symptoms Neurological: Reports: Other (Not really clear if she's complaining of weakness or not. Most of the significant history is given her mom. See history of present illness) Psychiatric: Reports: No Symptoms Hematologic/Lymphatic: Reports: No Symptoms Immunologic: Reports: No Symptoms ED EXAM, GENERAL - Physical Exam Exam: See Below Exam Limited By: No Limitations General Appearance: Alert, Obese, Other (She doesn't really appear to be in any distress. She's a little bit difficult to understand it but that might because her mouth is so dry.) Eye Exam: Bilateral Eye: EOMI, PERRL Ears: Normal External Exam, Normal TMs (Right right ear canals kind of normal but the TM is normal) Nose: Normal Inspection Throat/Mouth: Other (Mouth and tongue are extremely dry) Head: Atraumatic Neck: Normal Inspection Respiratory/Chest: Lungs Clear Cardiovascular: Normal Peripheral Pulses, Regular Rate, Rhythm Peripheral Pulses: 2+: Dorsalis Pedis (L), Dorsalis Pedis (R) GI/Abdominal: Normal Bowel Sounds, Soft, Non-Tender, No Distention, Other (obese ) Back Exam: Normal Inspection Extremities: No Pedal Edema, Other (She has some abrasions to both knees but I don't see any effusions. There are some very minor bruises to both wrists but she has full range of motion and they are nontender). No: Increased Warmth Neurological: Oriented (She seems fairly alert other times she seems a little bit on the sleepy side.), CN II-XII Intact, No Motor/Sensory Deficits, Other Psychiatric: Normal Affect, Normal Mood Skin Exam: Warm, Dry, Other (Turgor seems normal) Course - Vital Signs Last Recorded V/S: Last Vital Signs Temp 37.7 C 08/26/17 16:54 Pulse 114 H 08/26/17 16:54 Resp 14 08/26/17 16:54 BP 179/59 H 08/26/17 16:54 Pulse Ox 94 L 08/26/17 16:54 - Orders/Labs/Meds Orders: Active Orders 24 hr Category Date Time Status Sodium Chloride 0.9% [Saline Flush] Med 08/26/17 11:03 Active 10 ml FLUSH ASDIRECTED PRN Saline Lock Insert [OM.PC] Urgent Oth 08/26/17 11:02 Ordered EKG 12 Lead [EK] Urgent Ther 08/26/17 12:34 Stop Req Medication Orders Acetaminophen (Tylenol) 650 mg PO Q4H PRN PRN Reason: Pain (Mild 1-3)/fever Albuterol (Proventil Neb Soln) 2.5 mg NEB Q4H PRN PRN Reason: Shortness Of Breath/wheezing Aspirin (Halfprin) 81 mg PO DAILY ANNA Atenolol (Tenormin) 50 mg PO DAILY ANNA Benztropine Mesylate (Cogentin) 1 mg PO BEDTIME ANNA Citalopram Hydrobromide (Celexa) 40 mg PO DAILY ANNA Clonazepam (Klonopin) 1 mg PO DAILY ANNA Clonazepam (Klonopin) 2 mg PO BEDTIME ANNA Enoxaparin Sodium (Lovenox) 40 mg SUBCUT DAILY ANNA Gabapentin (Neurontin) 400 mg PO QID ANNA Glipizide (Glucotrol Xl) 10 mg PO BRK ANNA Sodium Chloride (Normal Saline) 1,000 mls @ 125 mls/hr IV ASDIRECTED ANNA Insulin Aspart (Novolog) 35 unit SUBCUT TIDAC ANNA Insulin Aspart (Novolog) 0 unit SUBCUT QIDACANDBED ANNA PRN Reason: Protocol Insulin Human NPH (Novolin N) 30 unit SUBCUT BEDTIME ANNA Mometasone Furoate/Formoterol Fumar (Dulera 200-5 Mcg) 0 puff IH BIDRT ANNA Olanzapine (Zyprexa) 5 mg PO DAILY ANNA Olanzapine (Zyprexa) 30 mg PO BEDTIME ANNA Ondansetron HCl (Zofran Odt) 4 mg PO Q6H PRN PRN Reason: Nausea able to take PO Oxycodone HCl (Oxycodone) 2.5 mg PO Q4H PRN PRN Reason: Pain (moderate 4-6) Polyethylene Glycol (Miralax) 17 gm PO DAILY PRN PRN Reason: Constipation Senna/Docusate Sodium (Senna Plus) 1 tab PO BID PRN PRN Reason: Constipation Sodium Chloride (Saline Flush) 10 ml FLUSH ASDIRECTED PRN PRN Reason: Keep Vein Open Last Admin: 08/26/17 11:35 Dose: 10 ml Labs: Laboratory Tests 08/26/17 08/26/17 08/26/17 Range/Units 11:36 11:36 12:34 WBC 7.3 (4.5-11.0) K/uL RBC 3.61 (3.30-5.50) M/uL Hgb 9.6 L (12.0-15.0) g/dL Hct 30.3 L (36.0-48.0) % MCV 84 (80-98) fL MCH 27 (27-31) pg MCHC 32 (32-36) % Plt Count 185 (150-400) K/uL Neut % (Auto) 80 H (36-66) % Lymph % (Auto) 10 L (24-44) % [place] % (Auto) 10 H (2-6) % Eos % (Auto) 0 L (2-4) % Baso % (Auto) 0 (0-1) % D-Dimer, Quantitative (0.0-400.0) ng/mL Sodium 131 L (140-148) mmol/L Potassium 6.0 H (3.6-5.2) mmol/L Chloride 99 L (100-108) mmol/L Carbon Dioxide 29 (21-32) mmol/L Anion Gap 9.0 (5.0-14.0) mmol/L BUN 36 H (7-18) mg/dL Creatinine 1.5 H (0.6-1.0) mg/dL Est Cr Clr Drug Dosing 37.34 mL/min Estimated GFR (MDRD) 35 L (>60) Glucose 232 H (74-106) mg/dL Calcium 8.8 (8.5-10.1) mg/dL Total Bilirubin 0.4 (0.2-1.0) mg/dL AST 24 D (15-37) U/L ALT 28 (12-78) U/L Alkaline Phosphatase 40 L (46-116) U/L Troponin I 0.136 H* (0.000-0.056) ng/mL Total Protein 5.6 L (6.4-8.2) g/dL Albumin 2.9 L (3.4-5.0) g/dL Globulin 2.7 (2.3-3.5) g/dL Albumin/Globulin Ratio 1.1 L (1.2-2.2) Urine Color Urine Appearance Urine pH (4.5-8.0) Ur Specific [place] (1.008-1.030) Urine Protein (NEGATIVE) mg/dL Urine Glucose (UA) (NEGATIVE) mg/dL Urine Ketones (NEGATIVE) mg/dL Urine Occult Blood (NEGATIVE) Urine Nitrite (NEGATIVE) Urine Bilirubin (NEGATIVE) Urine Urobilinogen (NORMAL) mg/dL Ur Leukocyte Esterase (NEGATIVE) Urine RBC (0-5) Urine WBC (0-5) Ur Epithelial Cells Amorphous Sediment Urine Bacteria Urine Mucus 08/26/17 08/26/17 08/26/17 Range/Units 12:59 14:30 15:53 WBC (4.5-11.0) K/uL RBC (3.30-5.50) M/uL Hgb (12.0-15.0) g/dL Hct (36.0-48.0) % MCV (80-98) fL MCH (27-31) pg MCHC (32-36) % Plt Count (150-400) K/uL Neut % (Auto) (36-66) % Lymph % (Auto) (24-44) % [place] % (Auto) (2-6) % Eos % (Auto) (2-4) % Baso % (Auto) (0-1) % D-Dimer, Quantitative 443 H (0.0-400.0) ng/mL Sodium (140-148) mmol/L Potassium (3.6-5.2) mmol/L Chloride (100-108) mmol/L Carbon Dioxide (21-32) mmol/L Anion Gap (5.0-14.0) mmol/L BUN (7-18) mg/dL Creatinine (0.6-1.0) mg/dL Est Cr Clr Drug Dosing mL/min Estimated GFR (MDRD) (>60) Glucose (74-106) mg/dL Calcium (8.5-10.1) mg/dL Total Bilirubin (0.2-1.0) mg/dL AST (15-37) U/L ALT (12-78) U/L Alkaline Phosphatase (46-116) U/L Troponin I 0.127 H* (0.000-0.056) ng/mL Total Protein (6.4-8.2) g/dL Albumin (3.4-5.0) g/dL Globulin (2.3-3.5) g/dL Albumin/Globulin Ratio (1.2-2.2) Urine Color Yellow Urine Appearance Cloudy Urine pH 5.0 (4.5-8.0) Ur Specific [place] 1.020 (1.008-1.030) Urine Protein Negative (NEGATIVE) mg/dL Urine Glucose (UA) Normal (NEGATIVE) mg/dL Urine Ketones Negative (NEGATIVE) mg/dL Urine Occult Blood Negative (NEGATIVE) Urine Nitrite Negative (NEGATIVE) Urine Bilirubin Negative (NEGATIVE) Urine Urobilinogen Normal (NORMAL) mg/dL Ur Leukocyte Esterase Negative (NEGATIVE) Urine RBC 0-5 (0-5) Urine WBC 0-5 (0-5) Ur Epithelial Cells Moderate Amorphous Sediment Not seen Urine Bacteria Few Urine Mucus Rare Meds: Medications Generic Name Dose Route Start Last Admin Trade Name Freq PRN Reason Stop Dose Admin Acetaminophen 650 mg 08/26/17 16:57 Tylenol PO Q4H PRN Pain (Mild 1-3)/fever Albuterol 2.5 mg 08/26/17 16:57 Proventil Neb Soln NEB Q4H PRN Shortness Of Breath/wheezing Aspirin 81 mg 08/27/17 09:00 Halfprin PO DAILY ANNA Atenolol 50 mg 08/27/17 09:00 Tenormin PO DAILY ANNA Benztropine Mesylate 1 mg 08/26/17 21:00 Cogentin PO BEDTIME ANNA Citalopram Hydrobromide 40 mg 08/27/17 09:00 Celexa PO DAILY ANNA Clonazepam 1 mg 08/27/17 09:00 Klonopin PO DAILY ANNA Clonazepam 2 mg 08/26/17 21:00 Klonopin PO BEDTIME [facility] Enoxaparin Sodium 40 mg 08/27/17 09:00 Lovenox SUBCUT DAILY [facility] Gabapentin 400 mg 08/26/17 16:57 Neurontin PO QID [facility] Glipizide 10 mg 08/27/17 08:00 Glucotrol Xl PO BRK [facility] Sodium Chloride 1,000 mls @ 125 mls/hr 08/26/17 16:57 Normal Saline IV ASDIRECTED [facility] Insulin Aspart 35 unit 08/26/17 16:57 Novolog SUBCUT TIDAC [facility] Insulin Aspart 0 unit 08/26/17 17:00 Novolog SUBCUT QIDACANDBED [facility] Protocol Insulin Human NPH 30 unit 08/26/17 21:00 Novolin N SUBCUT BEDTIME [facility] Mometasone Furoate/Formoterol Fumar 0 puff 08/26/17 21:00 Dulera 200-5 Mcg IH BIDRT [facility] Olanzapine 5 mg 08/27/17 09:00 Zyprexa PO DAILY [facility] Olanzapine 30 mg 08/26/17 21:00 Zyprexa PO BEDTIME [facility] Ondansetron HCl 4 mg 08/26/17 16:57 Zofran Odt PO Q6H PRN Nausea able to take PO Oxycodone HCl 2.5 mg 08/26/17 16:57 Oxycodone PO Q4H PRN Pain (moderate 4-6) Polyethylene Glycol 17 gm 08/26/17 16:57 Miralax PO DAILY PRN Constipation Senna/Docusate Sodium 1 tab 08/26/17 16:57 Senna Plus PO BID PRN Constipation Sodium Chloride 10 ml 08/26/17 11:03 08/26/17 11:35 Saline Flush FLUSH 10 ml ASDIRECTED PRN Administration Keep Vein Open Discontinued Medications Generic Name Dose Route Start Last Admin Trade Name Freq PRN Reason Stop Dose Admin Sodium Chloride 1,000 mls @ 999 mls/hr 08/26/17 11:02 08/26/17 11:35 Normal Saline IV 08/26/17 12:02 999 mls/hr .BOLUS ONE Administration Sodium Chloride 1,000 mls @ 999 mls/hr 08/26/17 12:36 08/26/17 12:41 Normal Saline IV 08/26/17 13:36 999 mls/hr .BOLUS ONE Administration Olanzapine 5 mg 08/26/17 13:12 08/26/17 13:32 Zyprexa PO 08/26/17 13:13 5 mg ONETIME ONE Administration - Radiology Interpretation Free Text/Narrative:: A chest x-ray showed nothing acute - Re-Assessments/Exams Free Text/Narrative Re-Assessment/Exam: 08/26/17 17:52 EKG was done on this patient and showed nothing acute. The EKG tracing is not available for my inspection at this time Patient received 2 L of IV normal saline. She felt quite a bit better afterwards. A troponin level was elevated at 1.3 6 repeat showed no significant change it 2 hours. It's noted on her labs and her hemoglobin was 12.3 on April 2015 and is gradually go down to 9.6 today. Her BUN is increased to 1.5 today and BUN up to 34. On her recent hospitalizations her BUN was approximately 25. It's believe that the troponin may be up since this lady said his of volume depleted in her renal function is decreased. I spoke with Dr. Olivares about admitting this lady since at least she's going need further hydration and possibly some physical therapy. Also noted was her potassium was increased to 6. She is on a YOANNA inhibitor Departure - Departure Time of Disposition: 17:54 Disposition: Admitted As Inpatient 68 Condition: Fair Clinical Impression: Dehydration, Multiple falls, Hyperkalemia, Renal insufficiency - Discharge Information - My Orders Last 24 Hours: My Active Orders 08/26/17 11:02 Saline Lock Insert [OM.PC] Urgent 08/26/17 11:03 Sodium Chloride 0.9% [Saline Flush] 10 ml FLUSH ASDIRECTED PRN 08/26/17 12:34 EKG 12 Lead [EK] Urgent - Assessment/Plan Last 24 Hours: My Active Orders 08/26/17 11:02 Saline Lock Insert [OM.PC] Urgent 08/26/17 11:03 Sodium Chloride 0.9% [Saline Flush] 10 ml FLUSH ASDIRECTED PRN 08/26/17 12:34 EKG 12 Lead [EK] Urgent
[2017-08-26] MEDS: oxyCODONE 5 MG Tab PO PRN (18:10)
[2017-08-26] MEDS: Gabapentin 400 MG Cap PO SCH ×2 (18:13→22:06)
[2017-08-26] MEDS: Insulin Aspart 100 Units/ML 3 ML Pen SUBCUT SCH ×3 (18:17→21:47)
[2017-08-26] MEDS: Formoterol/Mometasone 200-5 MCG 8.8 GM Inhaler IH SCH (20:15)
[2017-08-26] MEDS ORDERED: OLANZapine 5 MG Tab PO SCH (21:00)
[2017-08-26] MEDS ORDERED: Benztropine 1 MG Tab PO SCH (21:00)
[2017-08-26] MEDS ORDERED: Insulin Isophane NPH, Human 100 Units/ML 10 ML Vial SUBCUT SCH (21:00)
[2017-08-26] MEDS ORDERED: ClonazePAM 1 MG Tab PO SCH (21:00)
[2017-08-26] MEDS ORDERED: Lactated Ringers 1,000 ML IV ONE (23:04)
[2017-08-27] MEDS: Acetaminophen 325 MG Tab PO PRN ×3 (00:08→15:54)
[2017-08-27] MEDS: Sodium Chloride 0.9% 1,000 ML IV SCH ×2 (00:34→09:08)
[2017-08-27] MEDS: Gabapentin 400 MG Cap PO SCH ×3 (06:46→15:55)
[2017-08-27] MEDS: Formoterol/Mometasone 200-5 MCG 8.8 GM Inhaler IH SCH (07:48)
[2017-08-27] MEDS ORDERED: glipiZIDE 5 MG Tab.ER PO SCH (08:00)
[2017-08-27] MEDS ORDERED: Sodium Polystyrene Sulfonate 15 GM/60 ML Susp 60 ML Bot PO ONE (08:45)
--- NOTE | 2017-08-27 08:51 | US ---
VL Duplex Lwr Ext Veins Comp HISTORY: Bilateral leg pain. FINDINGS: The deep veins of the lower extremities bilaterally demonstrate normal augmentation and com pressibility. No evidence for deep venous thrombosis. IMPRESSION: Normal bilateral lower extremity venous Doppler ultrasound.
[2017-08-27] MEDS ORDERED: Citalopram 20 MG Tab PO SCH (09:00)
[2017-08-27] MEDS ORDERED: OLANZapine 5 MG Tab PO SCH (09:00)
[2017-08-27] MEDS ORDERED: Enoxaparin 40 MG/0.4 ML Syringe SUBCUT SCH (09:00)
[2017-08-27] MEDS ORDERED: Atenolol 50 MG Tab PO SCH (09:00)
[2017-08-27] MEDS ORDERED: Aspirin 81 MG Tab.EC PO SCH (09:00)
[2017-08-27] MEDS: Insulin Aspart 100 Units/ML 3 ML Pen SUBCUT SCH ×6 (09:10→17:56)
[2017-08-27] MEDS: ClonazePAM 1 MG Tab PO SCH ×2 (09:55→10:07)
--- NOTE | 2017-08-27 10:32 | CR ---
Chest 2V HISTORY: Fever COMPARISON: 08/26/2017 FINDINGS: Moderate cardiomegaly. Very mild congestive change. No dense infiltrates or effusions. Impression: Mild CHF.
--- NOTE | 2017-08-27 13:33 | PCM.PN ---
- General Info Date of Service: 08/27/17 Subjective Update: This patient is a 62-year-old woman who developed weakness with recurrent falls at home. Over the past few days prior to admission had been very lethargic and sleepy, likely secondary to medication effect from tramadol. She was also found to have significant hyperkalemia and acute on chronic renal insufficiency. During the night developed significant temperature elevation over 102, associated with tachycardia and increased respiratory rate. Blood cultures have been obtained and she was started on empiric IV antibiotic therapy with meropenem. She denies any other specific source of infection, follow-up chest x- ray showed no obvious infiltrates after hydration. She has had some mild abdominal pain, no nausea vomiting or diarrhea. She has abrasions on both knees but neither of these appear to be infected and there are no other obvious skin lesions identified. Functional Status: Reports: Pain Controlled, Tolerating Diet - Review of Systems General: Reports: Fever, Weakness, Chills Pulmonary: Reports: Shortness of Breath. Denies: Cough, Sputum, Hemoptysis, Wheezing Cardiovascular: Reports: Dyspnea on Exertion. Denies: Chest Pain, Palpitations , Orthopnea, PND, Edema, Lightheadedness Gastrointestinal: Reports: Abdominal Pain. Denies: Decreased Appetite, Diarrhea , Difficulty Swallowing, Nausea, Vomiting Genitourinary: Reports: No Symptoms Musculoskeletal: Reports: Joint Pain Skin: Reports: Other (Abrasions both knees) - Patient Data Vitals - Most Recent: Last Vital Signs Temp 98.4 F 08/27/17 10:49 Pulse 84 08/27/17 10:49 Resp 19 08/27/17 10:49 BP 142/69 H 08/27/17 10:49 Pulse Ox 98 08/27/17 10:49 Weight - Most Recent: 311 lb 4.013 oz I&O - Last 24 Hours: Intake & Output 08/26/17 08/27/17 08/27/17 22:59 06:59 14:59 Intake Total 2240 1903 Output Total 1750 650 Balance 490 1253 Lab Results Last 24 Hours: Laboratory Results - last 24 hr 08/26/17 08/26/17 08/27/17 Range/Units 17:55 17:55 05:51 WBC 4.4 L (4.5-11.0) K/uL RBC 3.41 (3.30-5.50) M/uL Hgb 8.9 L (12.0-15.0) g/dL Hct 29.3 L (36.0-48.0) % MCV 86 (80-98) fL MCH 26 L (27-31) pg MCHC 30 L (32-36) % Plt Count 166 (150-400) K/uL ESR 43 H (0-25) mm/hr Sodium (140-148) mmol/L Potassium (3.6-5.2) mmol/L Chloride (100-108) mmol/L Carbon Dioxide (21-32) mmol/L Anion Gap (5.0-14.0) mmol/L BUN (7-18) mg/dL Creatinine (0.6-1.0) mg/dL Est Cr Clr Drug Dosing mL/min Estimated GFR (MDRD) (>60) Glucose (74-106) mg/dL Calcium (8.5-10.1) mg/dL Troponin I 0.198 H* (0.000-0.056) ng/mL C-Reactive Protein 6.94 H (0.0-0.3) mg/dL 08/27/17 Range/Units 05:51 WBC (4.5-11.0) K/uL RBC (3.30-5.50) M/uL Hgb (12.0-15.0) g/dL Hct (36.0-48.0) % MCV (80-98) fL MCH (27-31) pg MCHC (32-36) % Plt Count (150-400) K/uL ESR (0-25) mm/hr Sodium 137 L (140-148) mmol/L Potassium 5.8 H (3.6-5.2) mmol/L Chloride 105 (100-108) mmol/L Carbon Dioxide 25 (21-32) mmol/L Anion Gap 12.8 (5.0-14.0) mmol/L BUN 30 H (7-18) mg/dL Creatinine 1.3 H (0.6-1.0) mg/dL Est Cr Clr Drug Dosing 41.41 mL/min Estimated GFR (MDRD) 42 L (>60) Glucose 227 H (74-106) mg/dL Calcium 8.3 L (8.5-10.1) mg/dL Troponin I 0.344 H* (0.000-0.056) ng/mL C-Reactive Protein (0.0-0.3) mg/dL Jr Results Last 24 Hours: Microbiology 08/26/17 23:10 Influenza Type A Antigen Screen - Final Nasopharyngeal Swab - Nare, Right NEGATIVE INFLUENZA A VIRUS AG Influenza Type B Antigen Screen - Final NEGATIVE INFLUENZA B VIRUS AG Med Orders - Current: Current Medications Acetaminophen (Tylenol) 650 mg PO Q4H PRN PRN Reason: Pain (Mild 1-3)/fever Last Admin: 08/27/17 10:41 Dose: 650 mg Albuterol (Proventil Neb Soln) 2.5 mg NEB Q4H PRN PRN Reason: Shortness Of Breath/wheezing Aspirin (Halfprin) 81 mg PO DAILY [facility] [place] Last Admin: 08/27/17 09:13 Dose: 81 mg Atenolol (Tenormin) 50 mg PO DAILY [facility] [place] Last Admin: 08/27/17 09:14 Dose: 50 mg Benztropine Mesylate (Cogentin) 1 mg PO BEDTIME [facility] [place] Last Admin: 08/26/17 20:14 Dose: 1 mg Citalopram Hydrobromide (Celexa) 40 mg PO DAILY [facility] [place] Last Admin: 08/27/17 09:14 Dose: 40 mg Clonazepam (Klonopin) 1 mg PO DAILY [facility] [place] Last Admin: 08/27/17 10:07 Dose: 1 mg Clonazepam (Klonopin) 2 mg PO BEDTIME [facility] [place] Last Admin: 08/26/17 20:14 Dose: 2 mg Enoxaparin Sodium (Lovenox) 40 mg SUBCUT DAILY [facility] [place] Last Admin: 08/27/17 09:13 Dose: 40 mg Gabapentin (Neurontin) 400 mg PO QID [facility] [place] Last Admin: 08/27/17 09:13 Dose: 400 mg Glipizide (Glucotrol Xl) 10 mg PO BRK [facility] [place] Last Admin: 08/27/17 09:14 Dose: 10 mg Meropenem 1 gm/ Sodium (Chloride) 50 mls @ 100 mls/hr IV Q8H [facility] [place] Last Admin: 08/27/17 09:08 Dose: 100 mls/hr Insulin Aspart (Novolog) 35 unit SUBCUT TIDAC [facility] [place] Last Admin: 08/27/17 09:10 Dose: 35 units Insulin Aspart (Novolog) 0 unit SUBCUT QIDACANDBED [facility] [place] PRN Reason: Protocol Last Admin: 08/27/17 09:11 Dose: 1 units Insulin Human NPH (Novolin N) 30 unit SUBCUT BEDTIME [facility] [place] Last Admin: 08/26/17 20:14 Dose: 30 units Mometasone Furoate/Formoterol Fumar (Dulera 200-5 Mcg) 0 puff IH BIDRT [facility] [place] Last Admin: 08/27/17 07:48 Dose: 2 puff Olanzapine (Zyprexa) 5 mg PO DAILY [facility] [place] Last Admin: 08/27/17 09:13 Dose: 5 mg Olanzapine (Zyprexa) 30 mg PO BEDTIME [facility] [place] Last Admin: 08/26/17 20:14 Dose: 30 mg Ondansetron HCl (Zofran Odt) 4 mg PO Q6H PRN PRN Reason: Nausea able to take PO Oxycodone HCl (Oxycodone) 2.5 mg PO Q4H PRN PRN Reason: Pain (moderate 4-6) Last Admin: 08/26/17 18:10 Dose: 2.5 mg Polyethylene Glycol (Miralax) 17 gm PO DAILY PRN PRN Reason: Constipation Senna/Docusate Sodium (Senna Plus) 1 tab PO BID PRN PRN Reason: Constipation Sodium Chloride (Saline Flush) 10 ml FLUSH ASDIRECTED PRN PRN Reason: Keep Vein Open Last Admin: 08/26/17 11:35 Dose: 10 ml Discontinued Medications Sodium Chloride (Normal Saline) 1,000 mls @ 999 mls/hr IV .BOLUS ONE Stop: 08/26/17 12:02 Last Admin: 08/26/17 11:35 Dose: 999 mls/hr Sodium Chloride (Normal Saline) 1,000 mls @ 999 mls/hr IV .BOLUS ONE Stop: 08/26/17 13:36 Last Admin: 08/26/17 12:41 Dose: 999 mls/hr Sodium Chloride (Normal Saline) 1,000 mls @ 125 mls/hr IV ASDIRECTED [facility] [place] Last Admin: 08/27/17 09:08 Dose: 125 mls/hr Lactated Ringer's (Ringers, Lactated) 1,000 mls @ 500 mls/hr IV BOLUS ONE Stop: 08/27/17 01:03 Last Admin: 08/26/17 23:53 Dose: 500 mls/hr Meropenem 1 gm/ Sodium (Chloride) 50 mls @ 100 mls/hr IV Q8H [facility] Last Admin: 08/27/17 00:34 Dose: 100 mls/hr Olanzapine (Zyprexa) 5 mg PO ONETIME ONE Stop: 08/26/17 13:13 Last Admin: 08/26/17 13:32 Dose: 5 mg Pneumococcal Polyvalent Vaccine (Pneumovax 23) 0.5 ml IM .ONCE ONE Stop: 08/26/17 17:48 Last Admin: 08/26/17 22:06 Dose: 0.5 ml Sodium Polystyrene Sulfonate (Kayexalate) 30 gm PO ONETIME ONE Stop: 08/27/17 08:46 Last Admin: 08/27/17 10:37 Dose: 30 gm - Exam Quality Assessment: Supplemental Oxygen, DVT Prophylaxis, Skin Breakdown ( Abrasions both knees present on admission) General: Alert, Oriented, Cooperative, Mild Distress Lungs: Decreased Breath Sounds. No: Crackles, Rales, Rhonchi, Rub, Wheezing Cardiovascular: Regular Rate, Regular Rhythm, No Murmurs GI/Abdominal Exam: Soft, No Organomegaly, No Distention, Tender. No: Guarding, Rigid, Rebound Back Exam: Normal Inspection, Full Range of Motion Extremities: Non-Tender, No Pedal Edema, Other (Abrasions both knees worse on the right, no evidence of infection) Skin: Warm, Dry - Problem List Review Problem List Initiated/Reviewed/Updated: Yes - My Orders Last 24 Hours: My Active Orders 08/26/17 23:02 Blood Culture x2 Reflex Set [OM.PC] Urgent 08/26/17 23:15 CULTURE BLOOD [BC] Urgent 08/26/17 23:20 CULTURE BLOOD [BC] Urgent 08/27/17 03:32 GLUCOSE POC LAB TO COLLECT [POC] Stat 08/27/17 08:00 Meropenem [Merrem] 1 gm Sodium Chloride 0.9% [Normal Saline] 50 ml IV Q8H 08/27/17 13:21 Discontinue Telemetry Monitoring [Cardiac Monitoring Discontinue] [RC] Click to Edit Convert IV to Saline Lock [OM.PC] Routine 08/27/17 17:00 POTASSIUM,K [CHEM] Stat 08/28/17 05:00 BASIC METABOLIC PANEL,BMP [CHEM] Timed CBC WITH AUTO DIFF [HEME] Timed MAGNESIUM [CHEM] Timed - Plan Plan:: ASSESSMENT AND PLAN - Recent falls secondary to weakness -likely secondary to medication effect from recently started medications as well as probable underlying infection. Venous Doppler studies obtained of both lower extremities and showed no evidence of deep vein thrombosis. Pulmonary embolism less likely, unable to perform CT scan with contrast because of renal insufficiency -D-dimer -Saline lock IV -Discontinue tramadol Fever with sepsis-temperature elevation during the night associated with tachycardia. After evaluation no obvious source of infection identified yet, she has had some relatively mild abdominal pain which could potentially represent a source. -Blood cultures pending -Continue empiric antibiotic therapy pending cultures and further evaluation -Consider CT scan of the abdomen if fever recurs or abdominal pain increases Hyperkalemia - she is on both an YOANNA inhibitor and a nonsteroidal which could cause the worsening renal function and hyperkalemia. Potassium remains elevated this morning following hydration -Kayexalate 30 mg by mouth 1 -Discontinue YOANNA inhibitor and diclofenac -Repeat potassium this evening and in a.m. Elevated troponin - probable mild demand ischemia in the setting of tachycardia , dehydration with poor clearance of the enzyme given her decreased renal function. Troponin elevated this morning will continue to monitor and plan to repeat in a.m. -Serial levels -Patient would likely benefit from outpatient stress testing Insulin-dependent diabetes mellitus -Continue usual home dosing -Hold metformin with decreased renal function -Sliding scale NovoLog Chronic psychiatric illnesses - she is on several medications as an outpatient and these will be continued though several of these medications could be contributing to her difficulties. Maintenance issues - - DVT prophylaxis - enoxaparin - GI prophylaxis - not indicated - Nutrition - diabetic diet - Key catheter - not indicated CODE STATUS - full code Admission justification - This patient will be admitted for inpatient services and is medically appropriate meeting medical necessity for inpatient admission as outlined in my documentation. I reasonably expect the patient will require inpatient services that span a period time over 2 midnights. I reasonably expect this patient to be discharged or transferred within 96 hours [facility] Disposition - anticipate discharge home after the hospital stay Primary care physician - Dr Lynch
[2017-08-27] MEDS: oxyCODONE 5 MG Tab PO PRN (16:28)
[2017-08-27 18:48] VITALS: BP 160/66
--- NOTE | 2017-08-27 19:17 | PCM.DCSUM1 ---
Discharge Summary - Hospital Course Brief History: This patient is a 62-year-old woman who is admitted through the emergency department with a history of progressive weakness resulting in falls at home. - Discharge Data Discharge Date: 08/27/17 Discharge Disposition: DC/Tfer to Acute Hospital 02 Condition: Fair - Discharge Diagnosis/Problem(s) (1) NSTEMI (non-ST elevated myocardial infarction) SNOMED Code(s): 031812138 ICD Code: I21.4 - NON-ST ELEVATION (NSTEMI) MYOCARDIAL INFARCTION Status: Acute Current Visit: Yes (2) Fever SNOMED Code(s): 288595882 ICD Code: R50.9 - FEVER, UNSPECIFIED Status: Acute Current Visit: Yes (3) Diabetes mellitus SNOMED Code(s): 00149424 ICD Code: E11.9 - TYPE 2 DIABETES MELLITUS WITHOUT COMPLICATIONS Status: Chronic Current Visit: No Qualifiers: Diabetes mellitus type: type 2 Diabetes mellitus complication status: with unspecified complications Diabetes mellitus terminal manager insulin use: with group home use Qualified Code(s): E11.8 - Type 2 diabetes mellitus with unspecified complications; Z79.4 - [facility] (current) use of insulin; Z79.4 - [facility] ( current) use of insulin; Z79.4 - [facility] (current) use of insulin; Z79.4 - [facility] (current) use of insulin (4) Morbid obesity with BMI of 45.0-49.9, adult SNOMED Code(s): 144719997 ICD Code: E66.01 - MORBID (SEVERE) OBESITY DUE TO EXCESS CALORIES; Z68.42 - BODY MASS INDEX (BMI) 45.0-49.9, ADULT Status: Chronic Current Visit: Yes - Patient Summary/Data Consults: Consultations 08/27/17 07:00 PT Evaluation and Treatment [CONS] Routine Please Evaluate and Treat. PT Reason for Consult: Ambulation This query below is only for informational purposes and is not editable. Hospital Course: This patient is a 62-year-old woman who is seen in the emergency department because of recent history of weakness and falls. Initially was felt that she'd had syncope but on further questioning patient denies that she ever lost consciousness but was falling because of weakness. She had been more lethargic for a few days prior to admission this was felt to coincide with having been started on tramadol and a nonsteroidal medication for management of osteoarthritis of her knees. The nonsteroidal therapy and tramadol were held at the time of admission and she was given IV fluids for hydration. On evaluation the emergency department initial troponin level was elevated at 0.13, this was thought to be likely demand ischemia in the setting of dehydration and underlying renal insufficiency. During the night she developed a temperature of 102.4 associated with some tachycardia and increase in respiratory rate. Blood cultures were obtained and are pending at the time of transfer. Follow-up chest x-ray showed no evidence of infiltrates and urinalysis at the time of admission was unremarkable. She was experiencing mild abdominal discomfort but was able to eat and had no other significant symptoms. Troponin level was obtained in the morning of transfer and was elevated at 3.4, still felt to be consistent with probable demand ischemia and renal insufficiency. Throughout her hospital course she reported no symptoms of chest pain or pressure. With the temperature elevation she was placed on empiric IV antibiotic therapy with meropenem, pending culture results. Troponin was again obtained on the evening of transfer and was further elevated at 0.65. With ongoing increase in troponin level, was felt more likely that they may be related to a primary process and non-ST segment elevation myocardial infarction. EKG was obtained on the evening of transfer and showed no acute ST segment changes. Hospitalist at [facility] in [facility] Dr. Alfred was contacted and has agreed to accept the patient in transfer. She will be transferred via [facility]. - Patient Instructions Diet: Usual Diet as Tolerated Activity: As Tolerated Other/Special Instructions: Patient will be transferred to [facility] in [facility] via [facility] - Discharge Plan Home Medications: Home Meds Albuterol Sulfate [Proair Respiclick] 2 puff IN Q4HR PRN 04/29/15 [History] Aspirin [Adult Low Dose Aspirin EC] 81 mg PO DAILY 04/29/15 [History] Atenolol 50 mg PO DAILY 04/29/15 [History] Citalopram Hydrobromide [Celexa] 40 mg PO DAILY 04/29/15 [History] Fenofibrate,Micronized [Lofibra] 134 mg PO DAILY 04/29/15 [History] Gabapentin [Neurontin] 400 mg PO QID 04/29/15 [History] Insulin Aspart [NovoLOG] 37 units SUBCUT TID 04/29/15 [History] Lisinopril [Zestril] 5 mg PO DAILY 04/29/15 [History] OLANZapine [ZyPREXA] 30 mg PO BEDTIME 04/29/15 [History] metFORMIN HCl [Metformin HCl] 1,000 mg PO BID 04/29/15 [History] Nitroglycerin [Nitrostat] 1 tab SL ASDIRECTED 05/08/15 [History] Fluticasone/Salmeterol [Advair Hfa 230-21 Mcg Inhaler] 2 inh INH BID 11/01/16 [ History] OLANZapine [Olanzapine] 5 mg PO DAILY 11/01/16 [History] glipiZIDE [Glucotrol XL] 5 mg PO BRK 11/01/16 [History] Insulin NPH Human Isophane [Novolin N] 30 unit SQ BEDTIME 08/25/17 [History] Benztropine Mesylate 1 tab PO BEDTIME 08/26/17 [History] Diclofenac Potassium [Cataflam] 1 tab PO ASDIRECTED 08/26/17 [History] clonazePAM [Klonopin] 1 mg PO DAILY 08/26/17 [History] clonazePAM [Klonopin] 2 mg PO BEDTIME 08/26/17 [History] Meropenem [Merrem] 1 gm IV Q8H sdv 08/27/17 [Rx] - Patient Data Vitals - Most Recent: Last Vital Signs Temp 99.0 F 08/27/17 18:46 Pulse 88 08/27/17 18:46 Resp 18 08/27/17 18:46 BP 160/66 H 08/27/17 18:46 Pulse Ox 96 08/27/17 18:46 Weight - Most Recent: 311 lb 4.013 oz I&O - Last 24 hours: Intake & Output 08/27/17 08/27/17 08/27/17 06:59 14:59 22:59 Intake Total 3890 428 6367 Output Total 650 300 Balance 7191 850 7086 Lab Results - Last 24 hrs: Laboratory Results - last 24 hr 08/27/17 08/27/17 08/27/17 Range/Units 05:51 05:51 17:00 WBC 4.4 L (4.5-11.0) K/uL RBC 3.41 (3.30-5.50) M/uL Hgb 8.9 L (12.0-15.0) g/dL Hct 29.3 L (36.0-48.0) % MCV 86 (80-98) fL MCH 26 L (27-31) pg MCHC 30 L (32-36) % Plt Count 166 (150-400) K/uL Sodium 137 L (140-148) mmol/L Potassium 5.8 H 5.2 (3.6-5.2) mmol/L Chloride 105 (100-108) mmol/L Carbon Dioxide 25 (21-32) mmol/L Anion Gap 12.8 (5.0-14.0) mmol/L BUN 30 H (7-18) mg/dL Creatinine 1.3 H (0.6-1.0) mg/dL Est Cr Clr Drug Dosing 41.41 mL/min Estimated GFR (MDRD) 42 L (>60) Glucose 227 H (74-106) mg/dL Calcium 8.3 L (8.5-10.1) mg/dL Troponin I 0.344 H* 0.653 H* (0.000-0.056) ng/mL BELLA Results - Last 24 hrs: Microbiology 08/26/17 23:10 Influenza Type A Antigen Screen - Final Nasopharyngeal Swab - Nare, Right NEGATIVE INFLUENZA A VIRUS AG Influenza Type B Antigen Screen - Final NEGATIVE INFLUENZA B VIRUS AG Med Orders - Current: Current Medications Acetaminophen (Tylenol) 650 mg PO Q4H PRN PRN Reason: Pain (Mild 1-3)/fever Last Admin: 08/27/17 15:54 Dose: 650 mg Albuterol (Proventil Neb Soln) 2.5 mg NEB Q4H PRN PRN Reason: Shortness Of Breath/wheezing Aspirin (Halfprin) 81 mg PO DAILY [facility] Last Admin: 08/27/17 09:13 Dose: 81 mg Atenolol (Tenormin) 50 mg PO DAILY [facility] Last Admin: 08/27/17 09:14 Dose: 50 mg Benztropine Mesylate (Cogentin) 1 mg PO BEDTIME [facility] Last Admin: 08/26/17 20:14 Dose: 1 mg Citalopram Hydrobromide (Celexa) 40 mg PO DAILY [facility] Last Admin: 08/27/17 09:14 Dose: 40 mg Clonazepam (Klonopin) 1 mg PO DAILY [facility] Last Admin: 08/27/17 10:07 Dose: 1 mg Clonazepam (Klonopin) 2 mg PO BEDTIME [facility] Last Admin: 08/26/17 20:14 Dose: 2 mg Enoxaparin Sodium (Lovenox) 40 mg SUBCUT DAILY [facility] Last Admin: 08/27/17 09:13 Dose: 40 mg Gabapentin (Neurontin) 400 mg PO QID [facility] Last Admin: 08/27/17 15:55 Dose: 400 mg Glipizide (Glucotrol Xl) 10 mg PO BRK [facility] Last Admin: 08/27/17 09:14 Dose: 10 mg Meropenem 1 gm/ Sodium (Chloride) 50 mls @ 100 mls/hr IV Q8H [facility] Last Admin: 08/27/17 16:17 Dose: 100 mls/hr Insulin Aspart (Novolog) 35 unit SUBCUT TIDAC [facility] Last Admin: 08/27/17 17:56 Dose: 35 units Insulin Aspart (Novolog) 0 unit SUBCUT QIDACANDBED [facility] PRN Reason: Protocol Last Admin: 08/27/17 17:56 Dose: 1 units Insulin Human NPH (Novolin N) 30 unit SUBCUT BEDTIME [facility] Last Admin: 08/26/17 20:14 Dose: 30 units Mometasone Furoate/Formoterol Fumar (Dulera 200-5 Mcg) 0 puff IH BIDRT [facility] Last Admin: 08/27/17 07:48 Dose: 2 puff Olanzapine (Zyprexa) 5 mg PO DAILY [facility] Last Admin: 08/27/17 09:13 Dose: 5 mg Olanzapine (Zyprexa) 30 mg PO BEDTIME [facility] Last Admin: 08/26/17 20:14 Dose: 30 mg Ondansetron HCl (Zofran Odt) 4 mg PO Q6H PRN PRN Reason: Nausea able to take PO Oxycodone HCl (Oxycodone) 2.5 mg PO Q4H PRN PRN Reason: Pain (moderate 4-6) Last Admin: 08/27/17 16:28 Dose: 2.5 mg Polyethylene Glycol (Miralax) 17 gm PO DAILY PRN PRN Reason: Constipation Senna/Docusate Sodium (Senna Plus) 1 tab PO BID PRN PRN Reason: Constipation Last Admin: 08/27/17 17:59 Dose: 1 tab Sodium Chloride (Saline Flush) 10 ml FLUSH ASDIRECTED PRN PRN Reason: Keep Vein Open Last Admin: 08/26/17 11:35 Dose: 10 ml Discontinued Medications Sodium Chloride (Normal Saline) 1,000 mls @ 999 mls/hr IV .BOLUS ONE Stop: 08/26/17 12:02 Last Admin: 08/26/17 11:35 Dose: 999 mls/hr Sodium Chloride (Normal Saline) 1,000 mls @ 999 mls/hr IV .BOLUS ONE Stop: 08/26/17 13:36 Last Admin: 08/26/17 12:41 Dose: 999 mls/hr Sodium Chloride (Normal Saline) 1,000 mls @ 125 mls/hr IV ASDIRECTED [facility] Last Admin: 08/27/17 09:08 Dose: 125 mls/hr Lactated Ringer's (Ringers, Lactated) 1,000 mls @ 500 mls/hr IV BOLUS ONE Stop: 08/27/17 01:03 Last Admin: 08/26/17 23:53 Dose: 500 mls/hr Meropenem 1 gm/ Sodium (Chloride) 50 mls @ 100 mls/hr IV Q8H [facility] Last Admin: 08/27/17 00:34 Dose: 100 mls/hr Olanzapine (Zyprexa) 5 mg PO ONETIME ONE Stop: 08/26/17 13:13 Last Admin: 08/26/17 13:32 Dose: 5 mg Pneumococcal Polyvalent Vaccine (Pneumovax 23) 0.5 ml IM .ONCE ONE Stop: 08/26/17 17:48 Last Admin: 08/26/17 22:06 Dose: 0.5 ml Sodium Polystyrene Sulfonate (Kayexalate) 30 gm PO ONETIME ONE Stop: 08/27/17 08:46 Last Admin: 08/27/17 10:37 Dose: 30 gm *Q Meaningful Use (DIS) - VTE *Q VTE Criteria *Q: - Stroke *Q Stroke Criteria *Q: - AMI *Q AMI Criteria *Q:
== END 2017-08-27 20:05 | DRG 281 ==
LOC: JP.ED 10:26 → JP.MS 15:55
PROVIDERS: ADMIT Internal Medicine; ATTEND Hospitalist
DX: R55 Syncope and collapse (principal); I21.4 Non-ST elevation (NSTEMI) myocardial infarction; N17.9 Acute kidney failure, unspecified; Z68.42 Body mass index [BMI] 45.0-49.9, adult; E87.5 Hyperkalemia; I12.9 Hypertensive chronic kidney disease with stage 1 through stage 4 chronic kidney disease, or unspecified chronic kidney disease; J44.9 Chronic obstructive pulmonary disease, unspecified; Z91.81 History of falling; R29.6 Repeated falls; F25.9 Schizoaffective disorder, unspecified; R53.1 Weakness; N18.3 Chronic kidney disease, stage 3 (moderate); E11.22 Type 2 diabetes mellitus with diabetic chronic kidney disease; Z79.4 Long term (current) use of insulin; Z87.891 Personal history of nicotine dependence; Z85.828 Personal history of other malignant neoplasm of skin; R74.8 Abnormal levels of other serum enzymes; E66.01 Morbid (severe) obesity due to excess calories; R50.9 Fever, unspecified; Z23 Encounter for immunization; Z88.1 Allergy status to other antibiotic agents; Z79.82 Long term (current) use of aspirin
CPT/HCPCS: 36415; 70450 ×2; 71045 ×2; 80053; 81001; 84484 ×2; 85025; 85379; 93005; A9270; J7040 ×2; J7050; 71046; 71046-26; 80048; 82962; 84132; 85027; 85651; 86140; 87040; 87804; 90732; 93970; 93970-26; 94640; 97162-GP; 97530-GP; 97535-GP; G0009; J1650; J2185; J7120

== ENCOUNTER 2019-06-26 23:18 | Emergency (ER) | payer MEDICARE ==
[2019-06-27] MEDS ORDERED: Atenolol 25 MG Tab PO ONE (00:21)
[2019-06-27] MEDS ORDERED: Aspirin 81 MG Tab.Chew PO ONE (00:21)
--- NOTE | 2019-06-27 00:28 | EDM.PDOC ---
ED HPI GENERAL MEDICAL PROBLEM - General Chief Complaint: Chest Pain Stated Complaint: CHEST PAINS Time Seen by Provider: 06/27/19 00:10 Source of Information: Reports: Patient, Old Records, RN History Limitations: Reports: No Limitations - History of Present Illness INITIAL COMMENTS - FREE TEXT/NARRATIVE: 64 yo female with COPD presents with intermittent chest pressure this evening. Can't say for sure if anything worsens or improves her pain. Has no associated sx's. No calf pain or LE edema. No cough or fever. Has not missed any of her meds. Doesn't smoke any more. Is not having any pain when I am examining her. 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 (see below) (none) denies Pain Score (Numeric/FACES): 0 - Related Data Allergies Allergy/AdvReac Type Severity Reaction Status Date / Time amoxicillin [From Augmentin] Allergy Difficulty Verified 06/26/19 23:42 Breathing clavulanic acid Allergy Difficulty Verified 06/26/19 23:42 [From Augmentin] Breathing ofloxacin [From Floxin] AdvReac Nausea Verified 06/26/19 23:42 Home Meds: Home Meds Albuterol Sulfate [Proair Respiclick] 2 puff IN Q4HR PRN 04/29/15 [History] Aspirin [Adult Low Dose Aspirin EC] 81 mg PO DAILY 04/29/15 [History] Atenolol 50 mg PO DAILY 04/29/15 [History] Citalopram Hydrobromide [Celexa] 40 mg PO DAILY 04/29/15 [History] Fenofibrate,Micronized [Lofibra] 134 mg PO DAILY 04/29/15 [History] Gabapentin [Neurontin] 300 mg PO QID 04/29/15 [History] Insulin Aspart [NovoLOG] 37 units SUBCUT TID 04/29/15 [History] Lisinopril [Zestril] 5 mg PO DAILY 04/29/15 [History] OLANZapine [ZyPREXA] 20 mg PO BEDTIME 04/29/15 [History] metFORMIN HCl [Metformin HCl] 1,000 mg PO BID 04/29/15 [History] Nitroglycerin [Nitrostat] 1 tab SL ASDIRECTED 05/08/15 [History] Fluticasone/Salmeterol [Advair Hfa 230-21 Mcg Inhaler] 2 inh INH BID 11/01/16 [ History] OLANZapine [Olanzapine] 5 mg PO DAILY 11/01/16 [History] glipiZIDE [Glucotrol XL] 5 mg PO BRK 11/01/16 [History] Insulin NPH Human Isophane [Novolin N] 30 unit SQ BEDTIME 08/25/17 [History] Benztropine Mesylate 1 tab PO BEDTIME 08/26/17 [History] Diclofenac Potassium [Cataflam] 1 tab PO ASDIRECTED 08/26/17 [History] clonazePAM [Klonopin] 1 mg PO DAILY 08/26/17 [History] clonazePAM [Klonopin] 2 mg PO BEDTIME 08/26/17 [History] Insulin Aspart [NovoLOG] 18 units SQ DAILY 07/17/18 [History] Insulin Aspart [NovoLOG] 20 units SQ ACDINNER 07/17/18 [History] Insulin Aspart [NovoLOG] 20 units SQ ASDIRECTED 07/17/18 [History] Insulin Glarg,Human.Rec.Analog [Lantus Solostar] 53 units SQ DAILY 07/17/18 [ History] Nitrofurantoin Monohyd/M-Cryst [Macrobid 100 mg Capsule] 100 mg PO Q12H #14 capsule 07/17/18 [Rx] Past Medical History HEENT History: Reports: Impaired Vision Cardiovascular History: Reports: CAD, High Cholesterol, Hypertension, SC Respiratory History: Reports: Asthma, COPD 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 Endocrine/Metabolic History: Reports: Diabetes, Type II, Obesity/BMI 30+ Oncologic (Cancer) History: Reports: Other (See Below) Other Oncologic History: skin cancer Other Dermatologic History: skin ca - Infectious Disease History Infectious Disease History: Reports: Chicken Pox, Measles - Past Surgical History Female Surgical History: Reports: Tubal Ligation Other Oncologic Surgeries/Procedures: HX OF SKIN CA Social & Family History - Family History Cardiac: Reports: CAD Respiratory: Reports: COPD Neurological: Reports: Alzheimers Disease, Dementia, Neuropathy, Diabetic, Parkinson's Psychiatric: Reports: Anxiety, Bipolar, Depression, Eating Disorders, Mood Swings, Psychosis Endocrine/Metabolic: Reports: Diabetes, type II Oncologic: Reports: Breast, Lung, Skin - Tobacco Use Smoking Status *Q: Never Smoker Second Hand Smoke Exposure: No - Caffeine Use Caffeine Use: Reports: Soda - Recreational Drug Use Recreational Drug Use: No ED ROS GENERAL - Review of Systems Review Of Systems: See Below Constitutional: Reports: No Symptoms HEENT: Reports: No Symptoms Respiratory: Reports: Shortness of Breath (chronic, not worse) Cardiovascular: Reports: Chest Pain (intermittent), Blood Pressure Problem (BP here in the ER is higher than her normal.), Dyspnea on Exertion (not new). Denies: Edema, Orthopnea, Palpitations Endocrine: Reports: No Symptoms GI/Abdominal: Reports: No Symptoms : Reports: No Symptoms Musculoskeletal: Reports: No Symptoms Skin: Reports: No Symptoms Neurological: Reports: No Symptoms ED EXAM, GENERAL - Physical Exam Exam: See Below Exam Limited By: No Limitations General Appearance: Alert, WD/WN, No Apparent Distress, Obese Eye Exam: Bilateral Eye: Normal Inspection Ears: Normal External Exam, Normal Canal, Hearing Grossly Normal, Normal TMs Ear Exam: Bilateral Ear: Auricle Normal, Canal Normal, TM normal Nose: Normal Inspection, No Blood Throat/Mouth: Normal Inspection, Normal Lips, Normal Oropharynx, Normal Voice, No Airway Compromise Head: Atraumatic, Normocephalic Neck: Normal Inspection Respiratory/Chest: No Respiratory Distress, Lungs Clear, Normal Breath Sounds, No Accessory Muscle Use, Chest Non-Tender Cardiovascular: Regular Rate, Rhythm, No Edema GI/Abdominal: Normal Bowel Sounds, Soft, Non-Tender, No Distention Back Exam: Normal Inspection. No: CVA Tenderness (R), CVA Tenderness (L) Extremities: Normal Inspection, Normal Range of Motion, Non-Tender, No Pedal Edema Neurological: Alert, Oriented, CN II-XII Intact, Normal Cognition, No Motor/ Sensory Deficits Psychiatric: Normal Affect, Normal Mood Skin Exam: Warm, Dry, Intact, Normal Color, No Rash EKG INTERPRETATION EKG Date: 06/27/19 Time: 00:25 Rhythm: NSR Rate (Beats/Min): 73 [place]: Normal P-Wave: Present QRS: Normal ST-T: Normal QT: Normal Comparison: No Change Course - Vital Signs Text/Narrative:: Went for a short walk in the ER, this did not make her sx's come back. Had a couple fleeting bouts of her chest sx's in the ER with no change in her vitals. Sx's seem less after Maalox. Last Recorded V/S: Last Vital Signs Temp 36.8 C 06/26/19 23:42 Pulse 74 06/27/19 00:41 Resp 16 06/26/19 23:42 BP 140/63 06/27/19 00:41 Pulse Ox 96 06/26/19 23:42 - Orders/Labs/Meds Orders: Active Orders 24 hr Category Date Time Status Cardiac Monitoring [RC] .As Directed Care 06/27/19 00:22 Active EKG Documentation Completion [RC] ASDIRECTED Care 06/27/19 00:22 Active EKG 12 Lead [EK] Routine Ther 06/27/19 00:22 Ordered Labs: Laboratory Tests 06/27/19 06/27/19 06/27/19 Range/Units 00:30 00:30 00:30 WBC 4.1 L (4.5-11.0) K/uL RBC 4.02 (3.30-5.50) M/uL Hgb 11.1 L (12.0-15.0) g/dL Hct 34.4 L (36.0-48.0) % MCV 86 (80-98) fL MCH 28 (27-31) pg MCHC 32 (32-36) % Plt Count 161 (150-400) K/uL D-Dimer, Quantitative 139 (0.0-400.0) ng/mL Sodium 138 L (140-148) mmol/L Potassium 4.0 (3.6-5.2) mmol/L Chloride 100 (100-108) mmol/L Carbon Dioxide 32 (21-32) mmol/L Anion Gap 10.0 (5.0-14.0) mmol/L BUN 38 H (7-18) mg/dL Creatinine 1.5 H (0.6-1.0) mg/dL Est Cr Clr Drug Dosing 36.40 mL/min Estimated GFR (MDRD) 35 L (>60) Glucose 207 H (74-106) mg/dL Calcium 8.9 (8.5-10.1) mg/dL Troponin I < 0.017 (0.000-0.056) ng/mL Meds: Medications Discontinued Medications Generic Name Dose Route Start Last Admin Trade Name Dona PRN Reason Stop Dose Admin Al Hydroxide/Mg Hydroxide 30 ml 06/27/19 00:53 06/27/19 00:59 Mag-Al Plus PO 06/27/19 00:54 30 ml ONETIME ONE Administration Aspirin 324 mg 06/27/19 00:21 06/27/19 00:41 Aspirin PO 06/27/19 00:22 324 mg ONETIME ONE Administration Atenolol 25 mg 06/27/19 00:21 06/27/19 00:41 Tenormin PO 06/27/19 00:22 25 mg ONETIME ONE Administration Departure - Departure Time of Disposition: 01:23 Disposition: Home, Self-Care 01 Condition: Fair Clinical Impression: Atypical chest pain GERD (gastroesophageal reflux disease) Qualifiers: Esophagitis presence: without esophagitis Qualified Code(s): K21.9 - Gastro- esophageal reflux disease without esophagitis Instructions: Gastroesophageal Reflux Disease, Adult, [id number] Referrals: Adi Lynch MD [Primary Care Provider] - Forms: ED Department Discharge Additional Instructions: Take Gaviscon 30 ml after meals and at bedtime. Recheck with your provider later in the week, return here if a lot worse. - My Orders Last 24 Hours: My Active Orders 06/27/19 00:22 Cardiac Monitoring [RC] .As Directed EKG Documentation Completion [RC] ASDIRECTED EKG 12 Lead [EK] Routine - Assessment/Plan Last 24 Hours: My Active Orders 06/27/19 00:22 Cardiac Monitoring [RC] .As Directed EKG Documentation Completion [RC] ASDIRECTED EKG 12 Lead [EK] Routine
[2019-06-27 00:42] VITALS: BP 140/63; PULSE 74
[2019-06-27] MEDS ORDERED: Aluminum Hydroxide/Magnesium Hydroxide/Simethicone Susp 30 ML Cup PO ONE (00:53)
== END 2019-06-27 01:33 | disposition home or self-care (01) ==
LOC: JP.ED 23:18
DX: R07.89 Other chest pain (principal); K21.9 Gastro-esophageal reflux disease without esophagitis; I25.10 Atherosclerotic heart disease of native coronary artery without angina pectoris; E78.00 Pure hypercholesterolemia, unspecified; I10 Essential (primary) hypertension; I25.2 Old myocardial infarction; J44.9 Chronic obstructive pulmonary disease, unspecified; F32.9 Major depressive disorder, single episode, unspecified; E66.9 Obesity, unspecified; E11.9 Type 2 diabetes mellitus without complications; Z88.0 Allergy status to penicillin; Z88.1 Allergy status to other antibiotic agents; Z79.899 Other long term (current) drug therapy; Z68.42 Body mass index [BMI] 45.0-49.9, adult; Z79.82 Long term (current) use of aspirin; Z79.4 Long term (current) use of insulin; Z79.51 Long term (current) use of inhaled steroids; Z85.828 Personal history of other malignant neoplasm of skin
CPT/HCPCS: 36415; 80048; 84484; 85027; 85379; 93005; 93010; 99285; A9270